=== PATIENT | male | born 1980 | race Caucasian/White ===

== ENCOUNTER 2023-10-09 19:17 | Inpatient (IN) | payer OTHER, SELFPAY ==
--- NOTE | ~2023-10-09 | XR_ITS ---
EXAMINATION: XR chest 1V CLINICAL INFORMATION: Reason for Exam weakness COMPARISON: None TECHNIQUE: XR chest 1V Tubes and lines: None Lungs and pleura: Both lungs are clear. Heart and mediastinum: The mediastinum is within normal limits.. Bones/soft tissue: Skeletal structures included are normal for patient's age. XR/XR chest 1V IMPRESSION: No radiographic evidence of acute cardiopulmonary disease.
[2023-10-09 19:58] VITALS: BP 91/53; PULSE 105; RESP 18; TEMP 37.1; O2SAT 97; BMI 41.2
--- NOTE | 2023-10-09 20:04 | ED_ITS ---
HPI - General Adult General Chief complaint: Dizziness Stated complaint: Dizziness Time Seen by Provider: 10/09/23 21:45 Source: patient Mode of arrival: ambulatory Limitations: no limitations History of Present Illness HPI narrative: 43 yo male with PMH of HTN, DM, anxiety - has been on lisinopril for over a year, takes metformin, glipizide, insulin, pioglitazone. 1 month ago he was started on klonazepam 0.5mg daily for anxiety. He notes he has been very dizzy when he stands - his vision becomes black, he loses strength in his legs, he feels like he is going to pass and then he has fallen to the ground. No trauma. This has been going on for a month. He notes decreased oral intake but denies vomiting or diarrhea. on 09/09 his Cr was 1.3 with his PCP MD complaint: syncope, near syncope, dizziness Onset (ago): month(s) (1) Radiation: non-radiation Severity: moderate Relieving factors: rest Exacerbating factors: other (standing up) Associated symptoms: loss of appetite, malaise and weakness Treatments prior to arrival: none Related Data Allergies Allergy/AdvReac Type Severity Reaction Status Date / Time semaglutide [From Ozempic] Allergy Gastrointestinal Verified 10/09/23 19:57 Upset Review of Systems 2 Review of Systems: Constitutional : No Fever, No Chills, No Fatigue, pos anorexia ENT/Mouth : No sore throat, No Rhinorrhea Eyes: No Eye Pain, No Swelling, No Redness Cardiovascular : No Chest Pain, No SOB, No Dyspnea on Exertion Respiratory : No Cough, No Sputum Gastrointestinal : No Nausea, No Vomiting, No Diarrhea, No abdominal Pain Genitourinary : No Dysuria, No Urinary Frequency, No Hematuria, Musculoskeletal : No joint pain, No Myalgias, No Joint Swelling Skin : No Skin Lesions, No rash Neuro : pos Weakness, No Numbness, pos Dizziness, no Headache, pos syncope Psych : No Anxiety/Panic, No Depression Heme/Lymph: No Bruising, No Bleeding,No Lymphadenopathy Endocrine : No Polyuria, No Polydipsia All other systems reviewed and are negative [facility] Past Medical History Attestation statement: The following information was validated with the patient. Source: old records reviewed Medical History Anxiety HTN (hypertension) Diabetes Social History Social History Alcohol intake: current Alcohol intake frequency: holidays/special occasions only Smoked in Last 30 Days: No Use of substances other than those prescribed or required for medical reasons: Yes Substance Use Type: Marijuana Substance Use Frequency: Socially Last Used Substance: Days (ago) Advance Directives: No Advance Directives Information Provided: No Physical Exam ED Vital Signs: Vital Signs - 24 hr 10/09/23 19:58 10/09/23 22:18 10/09/23 22:19 Temperature 98.7 F Pulse Rate 105 H 89 97 Respiratory Rate 18 Blood Pressure 91/53 L 79/44 L 77/38 L Pulse Oximetry 97 Oxygen Delivery Method Room Air 10/09/23 22:21 10/09/23 23:33 Temperature Pulse Rate 109 H 91 Respiratory Rate 18 Blood Pressure 66/24 L 95/55 L Pulse Oximetry 96 Oxygen Delivery Method Room Air BMI result Body Mass Index 41.2 Appearance: Alert. Oriented X3. No acute distress. Eyes: Pupils equal, round and reactive to light. ENT: Pharynx normal. Neck: Normal inspection. Neck supple. CVS: Normal heart rate and rhythm. Pulses normal. Respiratory: No respiratory distress. Breath sounds normal. Abdomen: Soft and nontender. Skin: Skin warm and dry. Normal skin color. Normal skin turgor. Extremities: No lower extremity edema. No calf ttp Neuro: Oriented X 3. No motor deficit. No sensory deficit. Course Course Course Narrative: 43-year-old male presents for evaluation of dizziness and syncope. Patient reports numerous times over the last month he has ?felt like the room was spinning, vision goes black and then I would black out. ? He states that he initially felt his symptoms were related to smoking too much weed. He is noted to be mildly hypotensive in triage. Plan for labs, EKG, orthostatics Reevaluation(s) Reevaluation #1: GROSSLY POSISTIVE ORTHOSTATICS DROPPED TO 60s systolic Reevaluation #2: hypotension due to orthostatics and not infection or severe sepsis Reevaluation #3: BP is coming up with IVF Medications Administered Discontinued Medications Generic Name Dose Route Start Last Admin Trade Name Freq PRN Reason Stop Dose Admin Sodium Chloride 1,000 mls @ 999 mls/hr 10/09/23 22:00 10/09/23 22:26 Ns IV 10/09/23 23:00 999 mls/hr .Q1H1M KEKE Administration Sodium Chloride 1,000 mls @ 999 mls/hr 10/09/23 22:00 10/09/23 22:27 Ns IV 10/09/23 23:00 999 mls/hr .Q1H1M KEKE Administration Medical Decision Making Medical Decision Making [facility] Narrative: 43 yo male with PMH of HTN, DM, HLD here with dizziness and near syncope/syncope while standing x 1 month after starting clonazepam. He denies trauma from falls. At this time will need EKG, labs, IVF x 2L, orthostatics. He has no CP/SOB, no GIB symptoms. He denies infectious symptoms. He is neurologically intact. Differential Diagnosis Differential Diagnoses: The differential diagnosis associated with the presentation includes med reactions, dehydration, orthostatics Admission/Observation Consideration of admission/observation: Escalation of care including admission/observation considered will admit given degree of symptoms Consult Healthcare Provider Management of the patient was discussed with: Hospitalist (will admit) Lab Data [facility] Lab Attestation statement: I reviewed the patient's lab results. 10/09/23 20:22 10/09/23 20:22 Labs: Lab Results 10/09/23 10/09/23 Range/Units 20:22 23:31 WBC 15.8 H (4.8-10.8) X10*3/uL RBC 5.70 (4.60-5.80) X10*6/uL Hgb 17.3 (14.0-18.0) g/dl Hct 50.7 (42.0-52.0) % MCV 88.9 (80.0-98.0) fL MCH 30.4 (27.0-33.0) pg MCHC 34.1 (31.0-36.0) g/dl RDW 12.7 (11.0-16.0) % Plt Count 287 (160-400) X10*3/uL MPV 11.5 (9.4-12.4) fL Immature Gran % (Auto) 0.4 (0.0-0.4) % Neut % (Auto) 62.4 (45-73) % Lymph % (Auto) 28.2 (20-40) % [place] % (Auto) 6.5 (2-11) % Eos % (Auto) 2.0 (0-4) % Baso % (Auto) 0.5 (0-2) % Lymph # (Auto) 4.5 (1.2-4.9) X10*3/uL [place] # (Auto) 1.0 (0.1-1.2) X10*3/uL Eos # (Auto) 0.3 (0.0-0.4) X10*3/uL Baso # (Auto) 0.1 (0.0-0.2) X10*3/uL Abs Immat Gran (auto) 0.07 H (0.00-0.03) X10*3/uL Absolute Neuts (auto) 9.9 H (2.0-8.3) x10*3/uL Absolute Nucleated RBC 0.000 (0.0-0.012) X10*3/uL Nucleated RBC % (auto) 0.0 (0.0-0.2) /100WBC Sodium 137 (135-145) mmol/L Potassium 4.3 (3.3-5.1) mmol/L Chloride 102 (96-108) mmol/L Carbon Dioxide 24 (22-29) mmol/L Anion Gap 15 (12-20) BUN 23 H (9-16) mg/dL Creatinine 1.83 H (0.5-1.4) mg/dL Estim Creat Clear Calc 75.3 Estimated GFR 40 Random Glucose 236 H (60-115) mg/dL Calcium 9.8 (8.4-10.2) mg/dL Magnesium 1.8 (1.6-2.6) mg/dL Total Bilirubin 1.9 H (0.0-1.0) mg/dL AST 23 (5-37) U/L ALT 33 (0-40) U/L Alkaline Phosphatase 90 (39-117) U/L Total Creatine Kinase 83 (38-174) U/L Troponin I High Sens 3.8 (<3.5-35.0) ng/L Total Protein 7.6 (6.5-8.0) g/dL Albumin 4.2 (3.5-5.0) g/dL Lipase 28 (8-78) U/L Urine Color Yellow Urine Appearance Clear Urine pH 5.5 (5.0-9.0) Ur Specific [place] >= 1.030 H (1.005-1.025) Urine Protein Negative (Neg-Trace) mg/dL Urine Glucose (UA) >=1000 H (Negative) mg/dL Urine Ketones Trace (Negative) mg/dL Urine Blood Negative (Negative) Urine Nitrite Negative (Negative) Ur Leukocyte Esterase Negative (Negative) Urine RBC 0-2 (0-2) /HPF Urine WBC 0-5 (0-5) /HPF Ur Squamous Epith Cells 0-2 (0-2) /HPF Urine Bacteria None Seen (None Seen) Hyaline Casts 0-2 (0-2) /LPF Urine Opiates Screen Not Detected (Not Detect) Urine Fentanyl Screen Not Detected (Not Detect) Ur Barbiturates Screen Not Detected (Not Detect) Ur Phencyclidine Scrn Not Detected (Not Detect) Ur Amphetamines Screen Not Detected (Not Detect) U Benzodiazepines Scrn Not Detected (Not Detect) Urine Cocaine Screen Not Detected (Not Detect) U Marijuana (THC) Screen POSITIVE H (Not Detect) Ethyl Alcohol < 10 mg/dL Independent Interpretation I performed an independent interpretation of an: EKG and Plain X-Ray Interpretation: Rate: 93 Rhythm: NSR [place]: normal Normal P waves. Normal YO. Normal QRS complex. ST T wave : normal no KATLIN qTC: 502 prolonged prior studies: no acute ischemia The study has been interpreted contemporaneously by me. . Radiology Impression Discussion of test interpretation with radiology: I have reviewed the radiologist's reading. External Record Review External record reviewed: Prior outpatient labs Discharge Plan Discharge Clinical Impression: DADA (acute kidney injury), Orthostatic hypotension Patient Disposition: Admitted As Inpatient
--- NOTE | 2023-10-09 20:05 | ECG_ITS ---
Test Reason : dizziness Blood Pressure : / mmHG Vent. Rate : 093 BPM Atrial Rate : 093 BPM P-R Int : 140 ms QRS Dur : 082 ms QT Int : 404 ms P-R-T Axes : 006 043 064 degrees QTc Int : 502 ms Normal sinus rhythm Prolonged QT Abnormal ECG No previous ECGs available Referred By: Andi Tello Electronically Signed By:TEX KEITA
[2023-10-09 20:26] LABS: MANUAL DIFF FLAG NO
[2023-10-09 20:31] LABS: Basophils Absolute Auto 0.1 X10*3/uL (0.0-0.2); Basophils Percent Auto 0.5 % (0-2); Eosinophils Absolute Auto 0.3 X10*3/uL (0.0-0.4); Hematocrit 50.7 % (42.0-52.0); Hemoglobin 17.3 g/dl (14.0-18.0); Imm Gran Abs Auto 0.07 X10*3/uL (0.00-0.03); Imm Gran Pct Auto 0.4 % (0.0-0.4); Lymphocytes Absolute Auto 4.5 X10*3/uL (1.2-4.9); Lymphocytes Percent Auto 28.2 % (20-40); Mean Corpuscular HGB Conc 34.1 g/dl (31.0-36.0); Mean Corpuscular Hemoglobin 30.4 pg (27.0-33.0); Mean Corpuscular Volume 88.9 fL (80.0-98.0); Mean Platelet Volume 11.5 fL (9.4-12.4); Monocytes Percent Auto 6.5 % (2-11); Neutrophils Absolute Auto 9.9 x10*3/uL (2.0-8.3); Neutrophils Percent Auto 62.4 % (45-73); Platelet Count 287 X10*3/uL (160-400); Red Cell Distribution Width 12.7 % (11.0-16.0); White Blood Count 15.8 X10*3/uL (4.8-10.8)
[2023-10-09 20:46] LABS: Alanine Aminotransferase 33 U/L (0-40); Albumin Level 4.2 g/dL (3.5-5.0); Alkaline Phosphatase 90 U/L (39-117); Anion Gap 15 (12-20); Aspartate Amino Transferase 23 U/L (5-37); Bilirubin Total 1.9 mg/dL (0.0-1.0); Blood Urea Nitrogen 23 mg/dL (9-16); Calcium 9.8 mg/dL (8.4-10.2); Carbon Dioxide 24 mmol/L (22-29); Chloride 102 mmol/L (96-108); Creatinine Clr Calc Pharmacy 75.3; Estimated Glomerular Filt Rate 40; Glucose Random 236 mg/dL (60-115); Lipase 28 U/L (8-78); Potassium 4.3 mmol/L (3.3-5.1); Sodium 137 mmol/L (135-145); Total Protein 7.6 g/dL (6.5-8.0)
[2023-10-09 20:53] LABS: Troponin-I High Sensitivity 3.8 ng/L (<3.5-35.0)
[2023-10-09 22:17] LABS: Ethanol < 10 mg/dL; Magnesium 1.8 mg/dL (1.6-2.6)
[2023-10-09 22:18] VITALS: BP 79/44; PULSE 89
[2023-10-09 22:19] VITALS: BP 77/38; PULSE 97
[2023-10-09 22:21] VITALS: BP 66/24; PULSE 109
[2023-10-09] MEDS: 0.9 % Sodium Chloride 1,000 ML 999 ML IV ×2 (22:26→22:27)
--- NOTE | 2023-10-09 22:30 | PC.NURSE ---
pt tolerate orthostatic vitals well, did c/o some dizziness when standing. advised pt to stay in bed and use urinal at bedside
[2023-10-09 23:33] VITALS: BP 95/55; PULSE 91; RESP 18; O2SAT 96
[2023-10-09 23:41] LABS: Appearance Urine Clear; Color Urine Yellow; Glucose Urine UA >=1000 mg/dL (Negative); Leukocyte Esterase Urine Negative (Negative); Nitrite Urine Negative (Negative); PH 5.5 (5.0-9.0); Specific Gravity - Urine >= 1.030 (1.005-1.025); UMIC TRIGGER UACC YES; Urine Blood Negative (Negative); Urine Ketones Trace mg/dL (Negative); Urine Protein Negative (Neg-Trace)
[2023-10-09 23:43] LABS: Bacteria Urine None Seen (None Seen); Hyaline Casts Urine 0-2 /LPF (0-2); RBC Urine 0-2 /HPF (0-2); Squamous Epithelial Cell Urine 0-2 /HPF (0-2); WBC Urine 0-5 /HPF (0-5)
[2023-10-09 23:55] LABS: Amphetamine Screen Urine Not Detected (Not Detect); Barbiturates, Urine Not Detected (Not Detect); Benzodiazepines Screen Urine Not Detected (Not Detect); Cannabinoid Screen Urine POSITIVE (Not Detect); Cocaine Screen Urine Not Detected (Not Detect); Fentanyl, urine Not Detected (Not Detect); Opiate Screen Urine Not Detected (Not Detect); Phencyclidine Screen Urine Not Detected (Not Detect)
--- NOTE | 2023-10-09 23:57 | PM.IMHP ---
History of Present Illness Date of Service: 10/09/23 Attending physician on admission: David Ramos Chief Complaint: Dizziness Patient is a 43 year old morbidly obese (41.2) white male with history of poorly controlled (per patient) type 2 diabetes mellitus and hypertension who comes to the emergency room complaining of worsening dizziness over the last few months with associated vision changes and falls with loss of consciousness. He admits to smoking marijuana and initially attributed his symptoms to Marijuana but unfortunately, he still experienced the symptoms even when he stopped using. He describes feeling dizzy with change in position from sitting to standing. He admits to poor oral intake and has unintentionally lost about 12 lbs over the last 2 weeks. He denies any associated cough, fevers, chills, chest pains, palpitations, nausea, vomiting or diarrhea. Initial blood work revealed a leucocytosis of 15.8 k/mm3 and mild renal insufficiency with a BUN of 23 mg/dl and creatinine 1.83 mg/dl. EKG showed normal sinus rhythm with prolonged QTc but with no ischemic changes. His vital signs were notable for severe orthostatic hypotension. He received 2 litres of normal saline with improvement in his symptoms but was still orthostatic and so a decision was made to admit him for further care. Review of Systems Review of Systems: Yes all other systems are reviewed and are negative [facility] Medical History (Updated 10/10/23 @ 02:59 by David Ramos MD) Depression Anxiety HTN (hypertension) Diabetes Surgical History (Updated 10/10/23 @ 02:42 by David Ramos MD) H/O adenoidectomy Social History Alcohol intake: current Alcohol intake frequency: holidays/special occasions only Patient Tobacco Use Status: Never used Tobacco Smoked in Last 30 Days: No Use of substances other than those prescribed or required for medical reasons: Yes Substance Use Type: Marijuana Substance Use Frequency: Socially Last Used Substance: Days (ago) Advance Directives: No Advance Directives Information Provided: No Nutrition Risks: No Nutritional Risk Meds Allergies Allergy/AdvReac Type Severity Reaction Status Date / Time semaglutide [From Ozempic] Allergy Gastrointestinal Verified 10/09/23 19:57 Upset Home Medications Medication Instructions Recorded Confirmed Last Taken Type aripiprazole 10 mg tablet 10 mg PO DAILY 10/10/23 10/10/23 Unknown History buspirone 30 mg tablet 30 mg PO BID 10/10/23 10/10/23 Unknown History clonazepam 0.5 mg tablet 0.5 mg PO DAILY PRN Anxiety 10/10/23 10/10/23 Unknown History empagliflozin 25 mg tablet 25 mg PO DAILY 10/10/23 10/10/23 Unknown History (Jardiance) escitalopram oxalate 20 mg tablet 20 mg PO DAILY 10/10/23 10/10/23 Unknown History escitalopram oxalate 20 mg tablet 20 mg PO DAILY 10/10/23 10/10/23 Unknown History gabapentin 300 mg capsule 300 mg PO TID 10/10/23 10/10/23 Unknown History insulin glargine 100 unit/mL (3 30 unit subcut DAILY@0730 Type 2 10/10/23 10/10/23 Unknown History mL) subcutaneous pen (Lantus Diabetes Mellitus Solostar U-100 Insulin) lisinopril 40 mg tablet 40 mg PO DAILY 10/10/23 10/10/23 Unknown History metformin 500 mg tablet,extended 2,000 mg PO DAILY 10/10/23 10/10/23 Unknown History release 24 hr pioglitazone 30 mg tablet 30 mg PO DAILY 10/10/23 10/10/23 Unknown History Physical Exam Vital Signs and Narrative: Vital Signs: Last Vital Signs Temp 98.7 F 10/09/23 19:58 Pulse 91 10/09/23 23:33 Resp 18 10/09/23 23:33 BP 95/55 L 10/09/23 23:33 Pulse Ox 96 10/09/23 23:33 O2 Del Method Room Air 10/09/23 23:33 BMI result Body Mass Index 41.2 General: Well nourished. Awake, alert and oriented x 4. No apparent distress Eyes: No pallor or jaundice. PERRLA, EOMI HENT: Moist oral mucus membranes. No oropharyngeal lesions. Neck: Supple. No cervical adenopathy. No JVD Cardiovascular: Regular rate and rhythm. Normal heart sounds. No murmurs, rubs or gallops. No JVD. No peripheral edema. Respiratory: Normal respiratory effort with no accessory muscle use. CTAB. , CTA bilaterally Gastrointestinal: Abdomen is soft, non-tender, non-distended. Normoactive bowel sounds. No hepatosplenomegaly Extremities: No edema. No calf tenderness. Good peripheral pulses Skin - Warm/Dry. No rashes. No mottling. Capillary refill is < 2 seconds Neurological - AAOx4. Intact speech & cognition. Normal gait & balance. CN II - XII grossly intact but not individually tested. No motor or sensory deficits Hematologic: No bleeding. No ecchymosis. No swollen or tender lymph nodes. Psychiatric: Cooperative. Appropriate mood and affect. Results Labs 10/09/23 20:22 10/09/23 20:22 Labs: Laboratory Results - last 24 hr 10/09/23 10/09/23 20:22 23:31 MCV 88.9 MCH 30.4 MCHC 34.1 RDW 12.7 Plt Count 287 MPV 11.5 Immature Gran % (Auto) 0.4 Neut % (Auto) 62.4 Lymph % (Auto) 28.2 [place] % (Auto) 6.5 Eos % (Auto) 2.0 Baso % (Auto) 0.5 Lymph # (Auto) 4.5 [place] # (Auto) 1.0 Eos # (Auto) 0.3 Baso # (Auto) 0.1 Abs Immat Gran (auto) 0.07 H Absolute Neuts (auto) 9.9 H Absolute Nucleated RBC 0.000 Nucleated RBC % (auto) 0.0 Anion Gap 15 Estim Creat Clear Calc 75.3 Estimated GFR 40 Random Glucose 236 H Calcium 9.8 Magnesium 1.8 Total Bilirubin 1.9 H AST 23 ALT 33 Alkaline Phosphatase 90 Total Creatine Kinase 83 Total Protein 7.6 Albumin 4.2 Lipase 28 Urine Color Yellow Urine Appearance Clear Urine pH 5.5 Ur Specific [employer] >= 1.030 H Urine Protein Negative Urine Glucose (UA) >=1000 H Urine Ketones Trace Urine Blood Negative Urine Nitrite Negative Ur Leukocyte Esterase Negative Urine RBC 0-2 Urine WBC 0-5 Ur Squamous Epith Cells 0-2 Urine Bacteria None Seen Hyaline Casts 0-2 Urine Opiates Screen Not Detected Urine Fentanyl Screen Not Detected Ur Barbiturates Screen Not Detected Ur Phencyclidine Scrn Not Detected Ur Amphetamines Screen Not Detected U Benzodiazepines Scrn Not Detected Urine Cocaine Screen Not Detected U Marijuana (THC) Screen POSITIVE H Ethyl Alcohol < 10 ECG Interpretation: NSR at 93 bpm with prolonged QT and no ischmeic changes Imaging Radiologist's Impressions: Impressions Chest X-Ray 12/08/23 22:11 IMPRESSION: No radiographic evidence of acute cardiopulmonary disease. Assessment and Plan (1) Orthostatic syncope: Status: Acute (2) Acute renal failure: Qualifiers: Acute renal failure type: unspecified Qualified Code(s): N17.9 - Acute kidney failure, unspecified Status: Acute (3) Type 2 diabetes mellitus: Qualifiers: Diabetes mellitus watermelon inspector insulin use: with senior care use Diabetes mellitus complication status: with hyperglycemia Qualified Code(s): E11.65 - Type 2 diabetes mellitus with hyperglycemia; Z79.4 - termination clerk (current) use of insulin Status: Acute (4) Anxiety and depression: Status: Acute (5) Morbid obesity with BMI of 40.0-44.9, adult: Status: Acute (6) Marijuana abuse: Status: Acute Plan 43 year old morbidly obese (41.2) white male with history of poorly controlled (per patient) type 2 diabetes mellitus and hypertension here with 1. Orthostatic syncope - reports dizziness with change in position - noted to have orthostatic hypotension - differential diagnosis to include dehydration vs autonomic dysfunction caused by T2DM - continue IV fluids 2. Acute renal failure - likely with pre-renal azotemia - BUN of 23 and creatinine of 1.83 mg/dl - rehydrate and re-evaluate in AM 3. Type 2 diabetes mellitus - with mild hyperglycemia with BS of 236 - resume Insulin Glargine, Glipizide, Jardiance and Pioglitazone - Hold Metformin due to DADA - check A1c 4. Anxiety & depression - resume Lexapro, Abilify, Buspar, gabapentin and PRN Clonazepam 5. Leucoytosis - noted with a leucocytosis of 15.8 - likely reactive since no signs of infection noted - monitor 5. Morbid obesity - BMI of 41.2 kg/m2 - encourage weight loss 6. Marijuana use - encourage complete cessation DVT: SC Lovenox CODE STATUS: Full code Admission for at least 2 midnights for management of orthostatic hypotension and acute renal failure Total time managing care of this patient today: 75 minutes. Quality Stroke Does the patient have a stroke diagnosis?: No VTE Prior VTE?: No VTE Risk Level:: Medical - moderate - high VTE Device Contraindication: N/A - Device Ordered VTE Drug Contraindication: N/A - Med Ordered
[2023-10-10] VITALS (9 sets, daily range): BP systolic 100–138; BP diastolic 58–81; PULSE 80–90; RESP 10–18; TEMP 36.6; O2SAT 94–97
--- NOTE | 2023-10-10 01:27 | PC.NURSE ---
hospitalist at bedside for admit
[2023-10-10] MEDS: Enoxaparin Sodium 40 MG/0.4 ML SYRINGE SUBCUT (01:38)
[2023-10-10] MEDS: Lactated Ringers 1,000 ML 999 ML IV ×2 (02:10→02:59)
--- NOTE | 2023-10-10 05:22 | PC.NURSE ---
pt ambulated to the bathroom, last BP 138/81. pt denied dizziness at this time. pt back in bed on monitor
--- NOTE | 2023-10-10 06:05 | PC.NURSE ---
pt awake most of the night, denies any pain or discomfort. given water and crackers. 4L of fluids were infused, BP stable
[2023-10-10 06:39] LABS: Estimated Average Glucose 232 mg/dL; Hemoglobin A1c % 9.7 % (<6.0)
[2023-10-10 06:45] LABS: Cholesterol 173 mg/dL (<200); HDL Cholesterol 31 mg/dL (>40); LDL Cholesterol Calculated 100 mg/dL (<100); Triglycerides 210 mg/dL (<150)
[2023-10-10 07:13] LABS: D Dimer High Sensitivity < 150 NG/ML
--- NOTE | 2023-10-10 07:45 | PHA.MEDREC ---
Pharmacy Consult ? Medication Reconciliation Pharmacy HAS REVIEWED THE MED REC COMPLETED BY PROVIDER KEREN
[2023-10-10 08:48] LABS: Glucose, Whole Blood 165 mg/dL (60-115)
[2023-10-10] MEDS: busPIRone HCl 10 MG TABLET 30 MG PO (08:58)
[2023-10-10] MEDS: Gabapentin 300 MG CAPSULE PO (08:58)
[2023-10-10] MEDS: Insulin Glargine,Hum.rec.anlog 100 UNIT/ML 10 ML VIAL 30 UNIT SUBCUT (08:58)
[2023-10-10] MEDS: Escitalopram Oxalate 20 MG TABLET PO (08:59)
[2023-10-10] MEDS: Docusate Sodium 100 MG CAPSULE PO (08:59)
[2023-10-10] MEDS: Insulin Lispro 100 UNIT/ML 3 ML VIAL SUBCUT (08:59)
[2023-10-10] MEDS: Pioglitazone HCL 30 MG TABLET PO (09:08)
[2023-10-10] MEDS: Empagliflozin 25 MG TABLET PO (09:08)
[2023-10-10] MEDS: ARIPiprazole 10 MG TABLET PO (09:08)
--- NOTE | 2023-10-10 09:14 | PC.NURSE ---
ASSUMED CARE OF THIS PT. CURRENTLY IN NAD, SKIN PWD. DROP IN BP FROM SITTING TO STANDING, ASYMPTOMATIC. MEDICATED PER EMR. C/O SLIGHT BACK PAIN, REPOSITIONING SELF FOR COMFORT.
[2023-10-10 13:38] LABS: Glucose, Whole Blood 164 mg/dL (60-115)
--- NOTE | 2023-10-10 14:38 | PM.DS ---
DS: Providers Provider Date of Service: 10/10/23 Date of admission: 10/09/23 23:58 Primary care physician: Unknown Physician DS: Diagnosis Discharge Diagnosis (1) Orthostatic syncope: Status: Acute (2) Acute renal failure: Status: Acute (3) Type 2 diabetes mellitus: Status: Acute (4) Anxiety and depression: Status: Acute (5) Morbid obesity with BMI of 40.0-44.9, adult: Status: Acute (6) Marijuana abuse: Status: Acute DS: Summary Hospital Course Hospital Course: Patient is a 43 year old morbidly obese (41.2) white male with history of poorly controlled (per patient) type 2 diabetes mellitus and hypertension who comes to the emergency room complaining of worsening dizziness over the last few months with associated vision changes and falls with loss of consciousness. He admits to smoking marijuana and initially attributed his symptoms to Marijuana but unfortunately, he still experienced the symptoms even when he stopped using. He describes feeling dizzy with change in position from sitting to standing. He admits to poor oral intake and has unintentionally lost about 12 lbs over the last 2 weeks. He denies any associated cough, fevers, chills, chest pains, palpitations, nausea, vomiting or diarrhea. Initial blood work revealed a leucocytosis of 15.8 k/mm3 and mild renal insufficiency with a BUN of 23 mg/dl and creatinine 1.83 mg/dl. EKG showed normal sinus rhythm with prolonged QTc but with no ischemic changes. His vital signs were notable for severe orthostatic hypotension. He received 2 litres of normal saline with improvement in his symptoms but was still orthostatic and so a decision was made to admit him for further care. 43-year-old man treated for orthostatic hypotension dizziness and acute renal failure. Patient reported that he had been drinking a lot or caffeine recently and not enough water or other liquids. He denied any alcohol use. Did report that he smokes marijuana. No other new medications. No obvious signs of infection, UA and chest x-ray negative. Patient with no fever. Likely reactive leukocytosis. Patient was treated with at least 2-3 L of IV fluids with improvement in blood pressure. Patient has been able to ambulate without any dizziness. His renal failure did return to normal after rehydration. Patient is to stop lisinopril as his blood pressures are on the lower side and DADA. The lisinopril may also be playing role as patient did report weight loss of at least 12 lb therefore may be he no longer requires antihypertensive medications he should follow-up with his primary care provider to make this determination. Leukocytosis. Reactive, no sign of infection Mental health. Continue medications Diabetes mellitus type 2. Continue home medications Morbid obesity. Discussed importance of weight management as this may be contributing to worsening of other comorbidities Marijuana use. Encouraged cessation Time Attestation Discharge coordination time: Greater than 30 minutes Quality: Safe Use of Opioids Does Pt have an Active Cancer Diagnosis on the Problem List?: No Quality: Stroke Does the patient have a stroke diagnosis?: No Physical Exam Vital Signs: Vital Signs: Last Vital Signs Temp 97.8 F 10/10/23 09:12 Pulse 90 10/10/23 09:12 Resp 16 10/10/23 09:12 BP 104/68 10/10/23 09:12 Pulse Ox 97 10/10/23 09:12 O2 Del Method Room Air 10/10/23 09:12 BMI result Body Mass Index 41.2 Appearing in no acute distress head is normocephalic atraumatic eyes pupils are PERRLA sclera is anicteric mouth throat mucous membranes are intact and moist neck is supple no lymphadenopathy, no JVD noted lung sounds are clear to auscultation heart regular rate rhythm, clear S1, S2 positive bowel sounds, abdomen is soft, nontender neuro patient is alert x3, no focal deficits DS: Data Data Completed and Pending Labs on day of discharge: Laboratory Results - last 24 hr 10/09/23 10/09/23 10/10/23 20:22 23:31 05:57 WBC 15.8 H RBC 5.70 Hgb 17.3 Hct 50.7 MCV 88.9 MCH 30.4 MCHC 34.1 RDW 12.7 Plt Count 287 MPV 11.5 Immature Gran % (Auto) 0.4 Neut % (Auto) 62.4 Lymph % (Auto) 28.2 Warren % (Auto) 6.5 Eos % (Auto) 2.0 Baso % (Auto) 0.5 Lymph # (Auto) 4.5 Warren # (Auto) 1.0 Eos # (Auto) 0.3 Baso # (Auto) 0.1 Abs Immat Gran (auto) 0.07 H Absolute Neuts (auto) 9.9 H Absolute Nucleated RBC 0.000 Nucleated RBC % (auto) 0.0 Hold Purple Top SEE NOTE PT 12.0 INR 1.0 D-Dimer High Sensitivty < 150 Sodium 137 Potassium 4.3 Chloride 102 Carbon Dioxide 24 Anion Gap 15 BUN 23 H Creatinine 1.83 H Estim Creat Clear Calc 75.3 Estimated GFR 40 POC Glucose Random Glucose 236 H Estimat Average Glucose 232 Hemoglobin A1c % 9.7 H Calcium 9.8 Magnesium 1.8 Total Bilirubin 1.9 H AST 23 ALT 33 Alkaline Phosphatase 90 Total Creatine Kinase 83 Troponin I High Sens 3.8 Total Protein 7.6 Albumin 4.2 Triglycerides 210 H Cholesterol 173 LDL Cholesterol, Calc 100 H HDL Cholesterol 31 L Lipase 28 Urine Color Yellow Urine Appearance Clear Urine pH 5.5 Ur Specific [place] >= 1.030 H Urine Protein Negative Urine Glucose (UA) >=1000 H Urine Ketones Trace Urine Blood Negative Urine Nitrite Negative Ur Leukocyte Esterase Negative Urine RBC 0-2 Urine WBC 0-5 Ur Squamous Epith Cells 0-2 Urine Bacteria None Seen Hyaline Casts 0-2 Urine Opiates Screen Not Detected Urine Fentanyl Screen Not Detected Ur Barbiturates Screen Not Detected Ur Phencyclidine Scrn Not Detected Ur Amphetamines Screen Not Detected U Benzodiazepines Scrn Not Detected Urine Cocaine Screen Not Detected U Marijuana (THC) Screen POSITIVE H Ethyl Alcohol < 10 10/10/23 10/10/23 08:43 13:33 WBC RBC Hgb Hct MCV MCH MCHC RDW Plt Count MPV Immature Gran % (Auto) Neut % (Auto) Lymph % (Auto) Warren % (Auto) Eos % (Auto) Baso % (Auto) Lymph # (Auto) Warren # (Auto) Eos # (Auto) Baso # (Auto) Abs Immat Gran (auto) Absolute Neuts (auto) Absolute Nucleated RBC Nucleated RBC % (auto) Hold Purple Top PT INR D-Dimer High Sensitivty Sodium Potassium Chloride Carbon Dioxide Anion Gap BUN Creatinine Estim Creat Clear Calc Estimated GFR POC Glucose 165 H 164 H Random Glucose Estimat Average Glucose Hemoglobin A1c % Calcium Magnesium Total Bilirubin AST ALT Alkaline Phosphatase Total Creatine Kinase Troponin I High Sens Total Protein Albumin Triglycerides Cholesterol LDL Cholesterol, Calc HDL Cholesterol Lipase Urine Color Urine Appearance Urine pH Ur Specific [place] Urine Protein Urine Glucose (UA) Urine Ketones Urine Blood Urine Nitrite Ur Leukocyte Esterase Urine RBC Urine WBC Ur Squamous Epith Cells Urine Bacteria Hyaline Casts Urine Opiates Screen Urine Fentanyl Screen Ur Barbiturates Screen Ur Phencyclidine Scrn Ur Amphetamines Screen U Benzodiazepines Scrn Urine Cocaine Screen U Marijuana (THC) Screen Ethyl Alcohol Discharge Plan Discharge Anticipated Discharge Date/Time: 10/10/23 14:34 Patient Disposition: Home, Self-Care Discharge Diagnosis: DADA Orthostatic hypotension Discharge Medications: Continued aripiprazole 10 mg tablet 10 mg PO DAILY clonazepam 0.5 mg tablet 0.5 mg PO DAILY PRN (Reason: Anxiety) escitalopram oxalate 20 mg tablet 20 mg PO DAILY pioglitazone 30 mg tablet 30 mg PO DAILY metformin 500 mg tablet extended release 24 hr 2,000 mg PO DAILY Jardiance 25 mg tablet 25 mg PO DAILY gabapentin 300 mg capsule 300 mg PO TID buspirone 30 mg tablet 30 mg PO BID insulin glargine [Lantus Solostar U-100 Insulin] 100 unit/mL (3 mL) insulin pen 30 unit subcut DAILY@0730 Discontinued lisinopril 40 mg tablet 40 mg PO DAILY Discharge Orders: Discharge Order (Routine); Ordered 10/10/23 Ordered By: Clarisa Walker Diet: Advance to usual diet Activity on Discharge: As tolerated Stand Alone Forms: Patient Portal Discharge page Care Plan Goals: Stay hydrated, avoid too much caffeine and alcohol Health Concerns: DADA Orthostatic hypotension Plan of Treatment: Take all medications as prescribed Your lisinopril was stopped due to low blood pressure, follow-up primary care provider to decide whether this medication needs to be restarted Assessment: See discharge summary
[2023-10-10 15:05] LABS: Anion Gap 11 (12-20); Blood Urea Nitrogen 17 mg/dL (9-16); Calcium 9.2 mg/dL (8.4-10.2); Carbon Dioxide 28 mmol/L (22-29); Chloride 105 mmol/L (96-108); Creatinine Clr Calc Pharmacy 109.4; Estimated Glomerular Filt Rate > 60; Glucose Random 170 mg/dL (60-115); Potassium 4.4 mmol/L (3.3-5.1); Sodium 140 mmol/L (135-145)
--- NOTE | 2023-10-10 15:13 | MHC.CM.PN ---
Pt lives alone, self-care. Returning home is the goal, pts mother will transport him home. Has HCP, copy requested. PCP: Dr. Jesse Bo
--- NOTE | 2023-10-10 16:21 | MHC.CM.PN ---
Pt is medically cleared for D/C home self-care, pts mother to transport him home.
== END 2023-10-10 16:00 | disposition home or self-care (01) | DRG 312 ==
LOC: HO.ED 22:34 → HO.EDOVER 10-10 00:14
PROVIDERS: Physician Assistant; Absent Provider Nurse Practitioner Acute Care; Admitting Provider Internal Medicine; Emergency Provider Emergency Medicine; PCP Family Medicine; Visit Provider Nurse Practitioner Acute Care
DX: I95.1 Orthostatic hypotension (principal); Z68.41 Body mass index [BMI] 40.0-44.9, adult; N17.9 Acute kidney failure, unspecified; F41.9 Anxiety disorder, unspecified; F32.A Depression, unspecified; E66.01 Morbid (severe) obesity due to excess calories; E11.65 Type 2 diabetes mellitus with hyperglycemia; Z79.4 Long term (current) use of insulin; Z79.84 Long term (current) use of oral hypoglycemic drugs; Z79.899 Other long term (current) drug therapy
CPT/HCPCS: 36415; 71045; 80048; 80053; 80061; 80307; 81001; 82550; 82947; 83036; 83690; 83735; 84484; 85025; 85379; 85610; 93005; 99285; J1650; J7120

== ENCOUNTER → 2023-10-09 20:05 | Outpatient (BNV) | payer OTHER, SELFPAY | PROVIDERS: Admitting Provider Internal Medicine; Emergency Provider Emergency Medicine; Visit Provider Internal Medicine | DX: I45.81 Long QT syndrome (principal) | CPT/HCPCS: 93010 ==

== ENCOUNTER → 2023-10-09 23:58 | Outpatient (BNV) | payer OTHER, SELFPAY | PROVIDERS: Admitting Provider Internal Medicine; Emergency Provider Emergency Medicine; Visit Provider Internal Medicine | DX: I95.1 Orthostatic hypotension (principal); N17.9 Acute kidney failure, unspecified; E11.65 Type 2 diabetes mellitus with hyperglycemia; Z79.4 Long term (current) use of insulin; F41.9 Anxiety disorder, unspecified; F32.A Depression, unspecified; E66.01 Morbid (severe) obesity due to excess calories; Z68.41 Body mass index [BMI] 40.0-44.9, adult; F12.10 Cannabis abuse, uncomplicated | CPT/HCPCS: 99223; 99239 ==

== ENCOUNTER 2025-01-03 16:07 | Emergency (ER) | payer OTHER, BC, SELFPAY ==
--- NOTE | ~2025-01-03 | XR_ITS ---
CLINICAL HISTORY: CP CHEST X-RAY FRONTAL AND LATERAL VIEWS COMPARISON: 10/09/2023. FINDINGS: Frontal and lateral views of the chest were performed. Cardiac size is within normal limits. There is no acute infiltrate or consolidation. There is minimal blunting of the left costophrenic angle on the lateral view, representing either pleural thickening or tiny pleural effusion. No pneumothorax. IMPRESSION: 1. Minimal blunting of the left costophrenic angle on the lateral view, representing either pleural thickening or tiny pleural effusion. 2. No acute infiltrate or consolidation. This document has been electronically signed by: Jamel Chang M.D. on 01/03/2025 21:10:04
--- NOTE | 2025-01-03 16:09 | ECG_ITS ---
Test Reason : chest pain Blood Pressure : */* mmHG Vent. Rate : 95 BPM Atrial Rate : 95 BPM P-R Int : 144 ms QRS Dur : 82 ms QT Int : 390 ms P-R-T Axes : 31 67 69 degrees QTcB Int : 490 ms Normal sinus rhythm Prolonged QT Abnormal ECG When compared with ECG of 09-Oct-2023 20:16, No significant change was found Referred By: Generic ED Physician Electronically Signed By: DENICE AC MD
[2025-01-03 16:27] VITALS: BP 139/91; PULSE 95; RESP 16; TEMP 36.6; O2SAT 95; BMI 39.3
--- NOTE | 2025-01-03 16:28 | ED.GENADULT ---
HPI - General Adult General Chief complaint: General Medical Stated complaint: ABN EKG sent by Urgent Care Time Seen by Provider: 01/04/25 03:58 Source: patient Mode of arrival: ambulatory Limitations: no limitations History of Present Illness ED Provider: Dr. Zaynab Farris HPI narrative: Patient comes to the emergency room complaining of lightheadedness with standing. Patient states that this is something chronic for him. Patient also complaining of high blood sugar. Patient states that last week he had chest tightness. At this time, patient feels fairly well. Related Data Home Medications ?Medication ?Instructions ?Recorded ?Confirmed aripiprazole 10 mg tablet 10 mg PO DAILY 10/10/23 10/10/23 buspirone 30 mg tablet 30 mg PO BID 10/10/23 10/10/23 clonazepam 0.5 mg tablet 0.5 mg PO DAILY PRN Anxiety 10/10/23 10/10/23 empagliflozin 25 mg tablet 25 mg PO DAILY 10/10/23 10/10/23 (Jardiance) escitalopram oxalate 20 mg tablet 20 mg PO DAILY 10/10/23 10/10/23 gabapentin 300 mg capsule 300 mg PO TID 10/10/23 10/10/23 insulin glargine 100 unit/mL (3 30 unit subcut DAILY@0730 Type 2 10/10/23 10/10/23 mL) subcutaneous pen (Lantus Diabetes Mellitus Solostar U-100 Insulin) metformin 500 mg tablet,extended 2,000 mg PO DAILY 10/10/23 10/10/23 release 24 hr pioglitazone 30 mg tablet 30 mg PO DAILY 10/10/23 10/10/23 Previous Rx's ?Medication ?Instructions ?Recorded insulin glargine 100 unit/mL (3 10 unit (0.1 mL) subcut QPM #15 mL 01/04/25 mL) subcutaneous pen (Lantus Solostar U-100 Insulin) Allergies Allergy/AdvReac Type Severity Reaction Status Date / Time dulaglutide [From Trulicity] Allergy Abdominal Verified 01/03/25 16:30 Pain semaglutide [From Ozempic] Allergy Gastrointestinal Verified 01/03/25 16:30 Upset Review of Systems Review of Systems: Constitutional : No Weight loss, No Fever, No Chills, No Night Sweats, No Fatigue, No Malaise ENT/Mouth : No Hearing loss, No Ear Pain, No Nasal Congestion, No Sinus Pain, No Hoarseness, No sore throat, No Rhinorrhea, No Swallowing Difficulty Eyes: No Eye Pain, No Swelling, No Redness, No Foreign Body, No Discharge, No Vision Changes Cardiovascular : No Chest Pain, No SOB, No Dyspnea on Exertion, No Orthopnea, No Edema, No Palpitations Respiratory : No Cough, No Sputum, No Wheezing, No Smoke Exposure, No Dyspnea Gastrointestinal : No Nausea, No Vomiting, No Diarrhea, No Constipation, No abdominal Pain, No Hematochezia, No Melena Genitourinary : no irregular bleeding, No Dysuria, No Urinary Frequency, No Hematuria, No Urinary Incontinence, No Urgency, No Flank Pain, No Urinary Flow Changes, No Hesitancy Musculoskeletal : No joint pain, No Myalgias, No Joint Swelling Skin : No Skin Lesions, No rash Neuro : No Weakness, No Numbness, No Paresthesias, No Loss of Consciousness, no headache, complaining of intermittent dizziness, not that this time. Psych : No Anxiety/Panic, No Depression, No SI/HI/AH/VH, No Social Issues, Heme/Lymph: No Bruising, No Bleeding,No Lymphadenopathy Endocrine : No Polyuria, No Polydipsia, No Temperature Intolerance, complaining of high blood glucose [facility] Past Medical History Medical History Anxiety and depression Type 2 diabetes mellitus Morbid obesity with BMI of 40.0-44.9, adult Depression Anxiety HTN (hypertension) Diabetes Surgical History (Updated 10/10/23 @ 02:42 by David Ramos MD) H/O adenoidectomy Social History Social History Alcohol intake: current Alcohol intake frequency: holidays/special occasions only Patient Tobacco Use Status: Never used Tobacco Use of substances other than those prescribed or required for medical reasons: No Substance Use Type: Marijuana Advance Directives: No Advance Directives Information Provided: Yes service: No Physical Exam ED Vital Signs: Vital Signs - 24 hr 01/03/25 16:27 01/04/25 00:04 01/04/25 04:20 Temperature 97.8 F 98.6 F Pulse Rate 95 96 89 Respiratory Rate 16 16 Blood Pressure 139/91 H 123/74 135/85 Pulse Oximetry 95 96 Oxygen Delivery Method Room Air Room Air 01/04/25 04:20 01/04/25 04:20 01/04/25 06:59 Temperature 97.7 F Pulse Rate 89 94 93 Respiratory Rate 14 Blood Pressure 137/74 128/72 173/91 H Pulse Oximetry 96 Oxygen Delivery Method Room Air BMI result Body Mass Index 39.3 Course Course Course Narrative: This is an RME: Additional HPI, ROS, PE not included below will be deferred to primary provider. RME assessment and note performed by: Elisa Brito PA-C This is a [id number], with a hx of DM, depression, anxiety, who presents to the ER with concerns for dizziness, and chest tightness x 1 week. went to an urgent care, and was told to report to the emergency room due to his symptoms. patient reports that he is supposed to be on insulin for his diabetes however states that he was unable to afford this. Plan: labs, EKG, chest x-ray, further ER evaluation needed Medications Administered Discontinued Medications Generic Name Dose Route Start Last Admin Trade Name Jesus PRN Reason Stop Dose Admin Sodium Chloride 1,000 mls @ 999 mls/hr 01/04/25 04:18 01/04/25 05:25 Ns IVCONT 01/04/25 05:18 Infused .Q1H1M ONE Infusion Insulin Human Regular 5 unit 01/04/25 04:18 01/04/25 04:30 Insulin Regular, Human 100 Unit/Ml 10 Ml Vial IVPUSH 01/04/25 04:19 5 unit ONCE ONE Administration Medical Decision Making Medical Decision Making [facility] Narrative: My interpretation of labs: No significant abnormality patient's hematology, chemistry shows a glucose of 394. Patient received IV fluids, 5 units of insulin, patient's point of care now to 69 Orthostatic vitals negative, negative troponin x2 My interpretation of EKG: Normal sinus rhythm, heart rate 90, no ST segment depression or elevation, no depression, QTC chronically elevated between [id number] and 500s Patient ready for discharge Differential Diagnosis Differential Diagnoses: The differential diagnosis associated with the presentation includes Admission/Observation Consideration of admission/observation: Escalation of care including admission/observation considered Lab Data [facility] Lab Attestation statement: I reviewed the patient's lab results. 01/03/25 17:38 01/03/25 17:38 Labs: Lab Results 01/03/25 01/03/25 01/03/25 Range/Units 17:38 18:23 18:26 WBC 11.9 H (4.8-10.8) X10*3/uL RBC 5.07 (4.60-5.80) X10*6/uL Hgb 15.1 (14.0-18.0) g/dl Hct 43.2 (42.0-52.0) % MCV 85.2 (80.0-98.0) fL MCH 29.8 (27.0-33.0) pg MCHC 35.0 (31.0-36.0) g/dl RDW 13.2 (11.0-16.0) % Plt Count 232 (160-400) X10*3/uL MPV 11.4 (9.4-12.4) fL Immature Gran % (Auto) 0.4 (0.0-0.4) % Neut % (Auto) 68.5 (45-73) % Lymph % (Auto) 22.7 (20-40) % [place] % (Auto) 6.5 (2-11) % Eos % (Auto) 1.5 (0-4) % Baso % (Auto) 0.4 (0-2) % Lymph # (Auto) 2.7 (1.2-4.9) X10*3/uL [place] # (Auto) 0.8 (0.1-1.2) X10*3/uL Eos # (Auto) 0.2 (0.0-0.4) X10*3/uL Baso # (Auto) 0.1 (0.0-0.2) X10*3/uL Abs Immat Gran (auto) 0.05 H (0.00-0.03) X10*3/uL Absolute Neuts (auto) 8.2 (2.0-8.3) x10*3/uL Absolute Nucleated RBC 0.000 (0.0-0.012) X10*3/uL Nucleated RBC % (auto) 0.0 (0.0-0.2) /100WBC VBG pH 7.42 (7.32-7.43) VBG pCO2 35 mmHg VBG pO2 53 mmHg VBG HCO3 23 (22-26) mmol/L VBG O2 Saturation 85.0 % VBG Base Excess -0.4 mmol/L Sodium 136 (135-145) mmol/L Potassium 4.0 (3.3-5.1) mmol/L Chloride 100 (96-108) mmol/L Carbon Dioxide 24 (22-29) mmol/L Anion Gap 16 (12-20) BUN 17 H (9-16) mg/dL Creatinine 1.26 (0.5-1.4) mg/dL Estim Creat Clear Calc 105.7 Estimated GFR > 60 POC Glucose (60-115) mg/dL Random Glucose 437 H* (60-115) mg/dL Calcium 9.0 (8.4-10.2) mg/dL Magnesium 1.5 L (1.6-2.6) mg/dL Total Bilirubin 2.6 H (0.0-1.0) mg/dL Direct Bilirubin 0.5 (0.0-0.5) mg/dL AST 103 H (5-37) U/L ALT 82 H (0-40) U/L Alkaline Phosphatase 103 (39-117) U/L Troponin I High Sens 11.0 D (<3.5-35.0) ng/L Total Protein 7.4 (6.5-8.0) g/dL Albumin 3.9 (3.5-5.0) g/dL Beta-Hydroxybutyrate 0.12 (0.02-0.27) mmol/L Ethyl Alcohol < 10 mg/dL Influenza Type A (PCR) NEGATIVE (Negative) Influenza Type B (PCR) NEGATIVE (Negative) RSV RNA Qual (PCR) NEGATIVE (Negative) SARS-CoV-2 RNA (RT-PCR) NEGATIVE (Negative) 01/03/25 01/04/25 01/04/25 Range/Units 21:06 00:07 04:15 WBC (4.8-10.8) X10*3/uL RBC (4.60-5.80) X10*6/uL Hgb (14.0-18.0) g/dl Hct (42.0-52.0) % MCV (80.0-98.0) fL MCH (27.0-33.0) pg MCHC (31.0-36.0) g/dl RDW (11.0-16.0) % Plt Count (160-400) X10*3/uL MPV (9.4-12.4) fL Immature Gran % (Auto) (0.0-0.4) % Neut % (Auto) (45-73) % Lymph % (Auto) (20-40) % [place] % (Auto) (2-11) % Eos % (Auto) (0-4) % Baso % (Auto) (0-2) % Lymph # (Auto) (1.2-4.9) X10*3/uL [place] # (Auto) (0.1-1.2) X10*3/uL Eos # (Auto) (0.0-0.4) X10*3/uL Baso # (Auto) (0.0-0.2) X10*3/uL Abs Immat Gran (auto) (0.00-0.03) X10*3/uL Absolute Neuts (auto) (2.0-8.3) x10*3/uL Absolute Nucleated RBC (0.0-0.012) X10*3/uL Nucleated RBC % (auto) (0.0-0.2) /100WBC VBG pH (7.32-7.43) VBG pCO2 mmHg VBG pO2 mmHg VBG HCO3 (22-26) mmol/L VBG O2 Saturation % VBG Base Excess mmol/L Sodium (135-145) mmol/L Potassium (3.3-5.1) mmol/L Chloride (96-108) mmol/L Carbon Dioxide (22-29) mmol/L Anion Gap (12-20) BUN (9-16) mg/dL Creatinine (0.5-1.4) mg/dL Estim Creat Clear Calc Estimated GFR POC Glucose 394 H* 312 H (60-115) mg/dL Random Glucose (60-115) mg/dL Calcium (8.4-10.2) mg/dL Magnesium (1.6-2.6) mg/dL Total Bilirubin (0.0-1.0) mg/dL Direct Bilirubin (0.0-0.5) mg/dL AST (5-37) U/L ALT (0-40) U/L Alkaline Phosphatase (39-117) U/L Troponin I High Sens 11.3 (<3.5-35.0) ng/L Total Protein (6.5-8.0) g/dL Albumin (3.5-5.0) g/dL Beta-Hydroxybutyrate (0.02-0.27) mmol/L Ethyl Alcohol mg/dL Influenza Type A (PCR) (Negative) Influenza Type B (PCR) (Negative) RSV RNA Qual (PCR) (Negative) SARS-CoV-2 RNA (RT-PCR) (Negative) 01/04/25 Range/Units 05:26 WBC (4.8-10.8) X10*3/uL RBC (4.60-5.80) X10*6/uL Hgb (14.0-18.0) g/dl Hct (42.0-52.0) % MCV (80.0-98.0) fL MCH (27.0-33.0) pg MCHC (31.0-36.0) g/dl RDW (11.0-16.0) % Plt Count (160-400) X10*3/uL MPV (9.4-12.4) fL Immature Gran % (Auto) (0.0-0.4) % Neut % (Auto) (45-73) % Lymph % (Auto) (20-40) % [place] % (Auto) (2-11) % Eos % (Auto) (0-4) % Baso % (Auto) (0-2) % Lymph # (Auto) (1.2-4.9) X10*3/uL [place] # (Auto) (0.1-1.2) X10*3/uL Eos # (Auto) (0.0-0.4) X10*3/uL Baso # (Auto) (0.0-0.2) X10*3/uL Abs Immat Gran (auto) (0.00-0.03) X10*3/uL Absolute Neuts (auto) (2.0-8.3) x10*3/uL Absolute Nucleated RBC (0.0-0.012) X10*3/uL Nucleated RBC % (auto) (0.0-0.2) /100WBC VBG pH (7.32-7.43) VBG pCO2 mmHg VBG pO2 mmHg VBG HCO3 (22-26) mmol/L VBG O2 Saturation % VBG Base Excess mmol/L Sodium (135-145) mmol/L Potassium (3.3-5.1) mmol/L Chloride (96-108) mmol/L Carbon Dioxide (22-29) mmol/L Anion Gap (12-20) BUN (9-16) mg/dL Creatinine (0.5-1.4) mg/dL Estim Creat Clear Calc Estimated GFR POC Glucose 269 H (60-115) mg/dL Random Glucose (60-115) mg/dL Calcium (8.4-10.2) mg/dL Magnesium (1.6-2.6) mg/dL Total Bilirubin (0.0-1.0) mg/dL Direct Bilirubin (0.0-0.5) mg/dL AST (5-37) U/L ALT (0-40) U/L Alkaline Phosphatase (39-117) U/L Troponin I High Sens (<3.5-35.0) ng/L Total Protein (6.5-8.0) g/dL Albumin (3.5-5.0) g/dL Beta-Hydroxybutyrate (0.02-0.27) mmol/L Ethyl Alcohol mg/dL Influenza Type A (PCR) (Negative) Influenza Type B (PCR) (Negative) RSV RNA Qual (PCR) (Negative) SARS-CoV-2 RNA (RT-PCR) (Negative) Discharge Plan Discharge Clinical Impression: Acute hyperglycemia, Dizziness Patient Disposition: Home, Self-Care Instructions: Lightheadedness (ED), Diabetic Hyperglycemia (ED) Additional Instructions: Please follow-up with your primary care physician tomorrow. If you have any worsening or new symptoms, please return to the emergency room or call 911. Please use your good Rx nap on your phone to get this count very medications. Prescriptions: New insulin glargine [Lantus Solostar U-100 Insulin] 100 unit/mL (3 mL) insulin pen 10 unit subcut QPM Qty: 15 1RF No Action aripiprazole 10 mg tablet 10 mg PO DAILY clonazepam 0.5 mg tablet 0.5 mg PO DAILY PRN (Reason: Anxiety) escitalopram oxalate 20 mg tablet 20 mg PO DAILY pioglitazone 30 mg tablet 30 mg PO DAILY metformin 500 mg tablet extended release 24 hr 2,000 mg PO DAILY Jardiance 25 mg tablet 25 mg PO DAILY gabapentin 300 mg capsule 300 mg PO TID buspirone 30 mg tablet 30 mg PO BID insulin glargine [Lantus Solostar U-100 Insulin] 100 unit/mL (3 mL) insulin pen 30 unit subcut DAILY@0730 Print Language: Syrian
[2025-01-03 17:43] LABS: MANUAL DIFF FLAG NO
[2025-01-03 17:52] LABS: Basophils Absolute Auto 0.1 X10*3/uL (0.0-0.2); Basophils Percent Auto 0.4 % (0-2); Eosinophils Absolute Auto 0.2 X10*3/uL (0.0-0.4); Eosinophils Percent Auto 1.5 % (0-4); Hematocrit 43.2 % (42.0-52.0); Hemoglobin 15.1 g/dl (14.0-18.0); Imm Gran Abs Auto 0.05 X10*3/uL (0.00-0.03); Imm Gran Pct Auto 0.4 % (0.0-0.4); Lymphocytes Absolute Auto 2.7 X10*3/uL (1.2-4.9); Lymphocytes Percent Auto 22.7 % (20-40); Mean Corpuscular Hemoglobin 29.8 pg (27.0-33.0); Mean Corpuscular Volume 85.2 fL (80.0-98.0); Mean Platelet Volume 11.4 fL (9.4-12.4); Monocytes Absolute Auto 0.8 X10*3/uL (0.1-1.2); Monocytes Percent Auto 6.5 % (2-11); Neutrophils Absolute Auto 8.2 x10*3/uL (2.0-8.3); Neutrophils Percent Auto 68.5 % (45-73); Platelet Count 232 X10*3/uL (160-400); Red Blood Count 5.07 X10*6/uL (4.60-5.80); Red Cell Distribution Width 13.2 % (11.0-16.0); White Blood Count 11.9 X10*3/uL (4.8-10.8)
[2025-01-03 18:06] LABS: Alanine Aminotransferase 82 U/L (0-40); Albumin Level 3.9 g/dL (3.5-5.0); Alkaline Phosphatase 103 U/L (39-117); Anion Gap 16 (12-20); Aspartate Amino Transferase 103 U/L (5-37); Bilirubin Direct 0.5 mg/dL (0.0-0.5); Bilirubin Total 2.6 mg/dL (0.0-1.0); Blood Urea Nitrogen 17 mg/dL (9-16); Carbon Dioxide 24 mmol/L (22-29); Chloride 100 mmol/L (96-108); Creatinine Clr Calc Pharmacy 105.7; Estimated Glomerular Filt Rate > 60; Glucose Random 437 mg/dL (60-115); Magnesium 1.5 mg/dL (1.6-2.6); Sodium 136 mmol/L (135-145); Total Protein 7.4 g/dL (6.5-8.0)
[2025-01-03 18:25] LABS: Influenza A PCR NEGATIVE (Negative); Influenza B PCR NEGATIVE (Negative); Resp Syncy Virus RNA Qual PCR NEGATIVE (Negative); SARS COV2 PCR INHOUSE NEGATIVE (Negative)
[2025-01-03 18:28] LABS: Venous Blood Gas Refer to POC result
[2025-01-03 18:30] LABS: VBG Base Excess -0.4 mmol/L; VBG HCO3 23 mmol/L (22-26); VBG pCO2 35 mmHg; VBG pH 7.42 (7.32-7.43); VBG pO2 53 mmHg
[2025-01-03 18:39] LABS: Beta-Hydroxybutyrate 0.12 mmol/L (0.02-0.27)
[2025-01-03 18:44] LABS: Ethanol < 10 mg/dL
--- NOTE | 2025-01-03 20:42 | ECG_ITS ---
Test Reason : repeat increase cp Blood Pressure : */* mmHG Vent. Rate : 90 BPM Atrial Rate : 90 BPM P-R Int : 132 ms QRS Dur : 84 ms QT Int : 404 ms P-R-T Axes : 6 61 66 degrees QTcB Int : 494 ms Normal sinus rhythm Prolonged QT Abnormal ECG When compared with ECG of 03-Jan-2025 16:19, No significant change was found Referred By: Elisa Brito Electronically Signed By: DENICE AC MD
[2025-01-03 21:33] LABS: Troponin-I High Sensitivity 11.3 ng/L (<3.5-35.0)
[2025-01-04 00:04] VITALS: BP 123/74; PULSE 96; RESP 16; TEMP 37; O2SAT 96
[2025-01-04 00:11] LABS: Glucose, Whole Blood 394 mg/dL (60-115)
--- NOTE | 2025-01-04 01:48 | PC.NURSE ---
pt brought back to emc room 3 from . reports he is a diabetic, however cannot afford his insulin at the moment. pt changing into hospital gown, waiting to be seen by ED provider. A&Ox4, ambulates independently in no distress.
[2025-01-04 04:19] LABS: Glucose, Whole Blood 312 mg/dL (60-115)
[2025-01-04 04:20] VITALS: BP 128/72; BP 135/85; BP 137/74; PULSE 89; PULSE 94
--- NOTE | 2025-01-04 04:21 | PC.NURSE ---
orthos done. repeat poc 312. MD alfaro aware
[2025-01-04] MEDS: 0.9 % Sodium Chloride 1,000 ML 999 ML IVCONT (04:30)
[2025-01-04] MEDS: Insulin Regular, Human 100 UNIT/ML 10 ML VIAL IVPUSH (04:30)
[2025-01-04 05:30] LABS: Glucose, Whole Blood 269 mg/dL (60-115)
--- NOTE | 2025-01-04 05:40 | PC.NURSE ---
iv fluids complete. repeat poc 269. MD Farris aware.
[2025-01-04 06:59] VITALS: BP 173/91; PULSE 93; RESP 14; TEMP 36.5; O2SAT 96
--- NOTE | 2025-01-04 07:00 | PC.NURSE ---
Report taken from Mayela Fermin RN
[2025-01-04 07:29] VITALS: BP 128/89; PULSE 90; RESP 15; TEMP 36.8; O2SAT 97
[2025-01-04 07:35] VITALS: BP 128/89; PULSE 90; RESP 15; TEMP 36.8; O2SAT 97
== END 2025-01-04 07:36 | disposition home or self-care (01) ==
PROVIDERS: Physician Assistant Medical; Emergency Provider Emergency Medicine; PCP Family Medicine
DX: E11.65 Type 2 diabetes mellitus with hyperglycemia (principal); R42 Dizziness and giddiness; Z03.818 Encounter for observation for suspected exposure to other biological agents ruled out
CPT/HCPCS: 0241U; 36415; 71046; 80048; 80076; 80307; 82010; 82803; 82947; 83735; 84484; 85025; 93005; 96361; 96374; 99284; 99285

== ENCOUNTER → 2025-01-03 16:09 | Outpatient (BNV) | payer OTHER, BC, SELFPAY | PROVIDERS: Emergency Provider Emergency Medicine; PCP Family Medicine; Visit Provider Internal Medicine Cardiovascular Disease | DX: R07.9 Chest pain, unspecified (principal); R94.31 Abnormal electrocardiogram [ECG] [EKG] | CPT/HCPCS: 93010 ==

== ENCOUNTER → 2025-01-03 20:42 | Outpatient (BNV) | payer OTHER, SELFPAY | PROVIDERS: Visit Provider Radiology Diagnostic Radiology | DX: R07.9 Chest pain, unspecified (principal) | CPT/HCPCS: 71046 ==

== ENCOUNTER 2025-04-26 06:10 | Outpatient (REF) | payer BC, SELFPAY ==
[2025-04-26 07:20] LABS: Basophils Percent Auto 0.4 % (0-2); Eosinophils Absolute Auto 0.2 X10*3/uL (0.0-0.4); Hematocrit 44.5 % (42.0-52.0); Hemoglobin 15.5 g/dl (14.0-18.0); Imm Gran Abs Auto 0.03 X10*3/uL (0.00-0.03); Imm Gran Pct Auto 0.3 % (0.0-0.4); Lymphocytes Absolute Auto 2.3 X10*3/uL (1.2-4.9); Lymphocytes Percent Auto 22.8 % (20-40); MANUAL DIFF FLAG NO; Mean Corpuscular HGB Conc 34.8 g/dl (31.0-36.0); Mean Corpuscular Hemoglobin 30.1 pg (27.0-33.0); Mean Corpuscular Volume 86.4 fL (80.0-98.0); Mean Platelet Volume 10.8 fL (9.4-12.4); Monocytes Absolute Auto 0.7 X10*3/uL (0.1-1.2); Monocytes Percent Auto 6.4 % (2-11); Neutrophils Absolute Auto 6.9 x10*3/uL (2.0-8.3); Neutrophils Percent Auto 68.1 % (45-73); Platelet Count 209 X10*3/uL (160-400); Red Blood Count 5.15 X10*6/uL (4.60-5.80); Red Cell Distribution Width 12.8 % (11.0-16.0); White Blood Count 10.1 X10*3/uL (4.8-10.8)
[2025-04-26 07:33] LABS: Appearance Urine Clear; Color Urine Yellow; Glucose Urine UA Negative (Negative); Leukocyte Esterase Urine Negative (Negative); Nitrite Urine Negative (Negative); PH 8.5 (5.0-9.0); Specific Gravity - Urine 1.025 (1.005-1.025); Urine Blood Negative (Negative); Urine Ketones Trace mg/dL (Negative); Urine Protein Trace mg/dL (Neg-Trace)
[2025-04-26 07:57] LABS: Erythrocyte Sedimentation Rate 9 MM/HR (0-15)
[2025-04-26 08:00] LABS: Alanine Aminotransferase 38 U/L (0-40); Albumin Level 4.3 g/dL (3.5-5.0); Alkaline Phosphatase 93 U/L (39-117); Anion Gap 15 (12-20); Aspartate Amino Transferase 32 U/L (5-37); Bilirubin Total 3.1 mg/dL (0.0-1.0); Blood Urea Nitrogen 6 mg/dL (9-16); C Reactive Protein 0.47 mg/dL (< or = 0.50); Calcium 9.1 mg/dL (8.4-10.2); Carbon Dioxide 25 mmol/L (22-29); Chloride 105 mmol/L (96-108); Cholesterol 167 mg/dL (<200); Estimated Glomerular Filt Rate > 60; Glucose Fasting 125 mg/dL (60-99); HDL Cholesterol 49 mg/dL (>40); Iron 124 mcg/dL (45-160); LDL Cholesterol Calculated 98 mg/dL (<100); Magnesium 1.5 mg/dL (1.6-2.6); Percent Iron Saturation 43 % (15-50); Potassium 3.5 mmol/L (3.3-5.1); Sodium 141 mmol/L (135-145); Total Iron Binding Capacity 290 mcg/dL (228-428); Triglycerides 103 mg/dL (<150); Unsaturated Iron Binding 166 ug/dL
--- NOTE | 2025-04-26 08:06 | ECG_ITS ---
Test Reason : F33.2 F90.9 Blood Pressure : */* mmHG Vent. Rate : 85 BPM Atrial Rate : 85 BPM P-R Int : 144 ms QRS Dur : 86 ms QT Int : 436 ms P-R-T Axes : 25 68 72 degrees QTcB Int : 518 ms Normal sinus rhythm Nonspecific ST and T wave abnormality Prolonged QT Abnormal ECG When compared with ECG of 03-Jan-2025 20:59, Nonspecific T wave abnormality, worse in Lateral leads Referred By: Nahed Moore Electronically Signed By: TEX KEITA
[2025-04-26 08:14] LABS: Thyroid Stimulating Hormone 1.93 uIU/mL (0.32-4.0); Vitamin D 25-OH Total 13.2 ng/mL (>30)
[2025-04-26 08:27] LABS: Folate 7.7 ng/mL (> or = 4.0); Syphilis Screen Nonreactive (Nonreactive); Vitamin B12 707 pg/mL (200-900)
[2025-04-26 09:21] LABS: Estimated Average Glucose 223 mg/dL; Hemoglobin A1c % 9.4 % (<6.0); Total Hemoglobin (HGBA1C) 4167.9335 umol/L
[2025-04-30 12:33] LABS: Vitamin B1 <6 nmol/L (8-30)
[2025-04-30 15:33] LABS: Testosterone, Free 70.2 pg/mL (35.0-155.0); Testosterone, Total 447 ng/dL (250-1100)
[2025-04-30 16:23] LABS: Homocysteine 11.6 umol/L (< or = 13.5)
== END 2025-04-26 06:11 | disposition home or self-care (01) ==
LOC: HO.LAB 06:10
PROVIDERS: PCP Family Medicine; Visit Provider Psychiatry & Neurology Psychiatry
DX: F33.2 Major depressive disorder, recurrent severe without psychotic features (principal); F90.9 Attention-deficit hyperactivity disorder, unspecified type; R41.3 Other amnesia; Z13.1 Encounter for screening for diabetes mellitus; Z13.6 Encounter for screening for cardiovascular disorders
CPT/HCPCS: 36415; 80053; 80061; 81003; 82306; 82550; 82607; 82746; 83036; 83090; 83540; 83735; 84402; 84403; 84425; 84439; 84443; 85025; 85652; 86140; 86780; 93005

== ENCOUNTER → 2025-04-26 08:06 | Outpatient (BNV) | payer BC, SELFPAY | PROVIDERS: PCP Family Medicine; Visit Provider Internal Medicine | DX: R94.31 Abnormal electrocardiogram [ECG] [EKG] (principal); F33.1 Major depressive disorder, recurrent, moderate; F90.9 Attention-deficit hyperactivity disorder, unspecified type | CPT/HCPCS: 93010 ==

== ENCOUNTER → 2025-04-27 11:15 | Outpatient (BNV) | payer BC, SELFPAY | PROVIDERS: Visit Provider Psychiatry & Neurology Psychiatry | DX: F33.9 Major depressive disorder, recurrent, unspecified (principal); F90.9 Attention-deficit hyperactivity disorder, unspecified type; F63.89 Other impulse disorders; F41.3 Other mixed anxiety disorders | CPT/HCPCS: 99214; 99499 ==

== ENCOUNTER 2025-05-11 10:45 | Outpatient (RCR) | payer BC, SELFPAY ==
[2025-04-25 11:54] VITALS: BMI 39.6
--- NOTE | 2025-04-25 13:22 | PC.ADMIT ---
Patient is a 44 year old single male who was referred to [facility] by [facility] where he was admitted from 04/14-04/17/25 secondary to increased anxiety and depression. I asked patient what was happening prior to Respite. Patient stated, One of my close supports, someone I thought I was dating, told me she was dating someone else. We were just friends . Patient stated he has known this person since high school. Patient reports he is on a PABLO from work since April 12, 2024. I haven't worked a full week of work as my anxiety gets to me . Patient reports history of heavy marijuana use since September 2024 using daily throughout the day when not working and using when he gets home from work. Reports he wants support with quitting use. Reports last use was on Thursday04/23/25. Patient reports marijuana makes his anxiety worse. Patient reports panic attacks, last one was 15 minutes ago. Patient stated he was meeting with the [facility] doctor who talked to him about new medications. Patient stated, I'm unable to afford new medication right now as I have a co-pay of about 15 dollars on medications. I'm hoping to get a paycheck tomorrow or the next day. Regarding supports patient stated, I can't tell my family they get worked up and worried. Patient reports his brother has been moderately supportive. Patient reports he has type Ii diabetes. Patient reports he checks his blood sugar daily and they range from 151-185. Patient reports this is an improvement as his blood sugars have been higher. Patient is alert and oriented x4. He is calm and cooperative. Stated he has attended [facility]'s in the past and found it helpful. Reports he is glad to be her getting help. Patient presented with depressed mood and anxious affect. He denied SI, no HI. He was given a copy of his safety plan if needed. Medications updated with patient and discharge medication list from [facility]. Patient reports he is taking medications as prescribed.
--- NOTE | 2025-04-25 20:29 | HO.PS.ADMBH ---
HPI Date of Service: 04/25/25 Chief Complaint: depression,anxiety,ADHD Sources of Information: patient interviewed, chart reviewed and crisis/core team assessment reviewed HPI Narrative: This is a 44 yo male with history of depression, anxiety, substance issues and ADHD was self referred to PHP for worsening depression, anxiety in context of relationship and other psychosocial stressors. ?I had been dating a friend for a little while, week broke up 3 weeks ago and it has started to go downhill from there . He was feeling increasingly hopeless, (especially fears of winding up alone in life), with transient passive SI of not wanting to wake up, but says he would never be at risk of having suicidal thoughts. He denies any history of SI and says even the thoughts of not wanting to wake up are occurring less often lately. ?I have accepted things, trying to move on from dating for now? Past Psychiatric History: IPLOC: none PHP: previously (1st time at [facility] [place] SA: denies SIB: Aggression: Previous medications trials: CURRENT MEDICATIONS: Lexapro 20 mg qd Abilify 5 mg qam Buspar 30 mg BID Wellbutrin XL 300 mg qam Methylphenidate ER 30 mg qam metformin 2000 mg qd pioglitazone 30 mg qd Lantus 50 units subcut qd [facility] Medical History (Updated 04/30/25 @ 19:05 by Nahed Moore MD) Sleep apnea Asthma Anxiety and depression Type 2 diabetes mellitus Morbid obesity with BMI of 40.0-44.9, adult Depression Anxiety HTN (hypertension) Surgical History (Updated 10/10/23 @ 02:42 by David Ramos MD) H/O adenoidectomy Diagnostics Vital Signs (24Hr): BMI result Body Mass Index 39.6 Meds/Allergies Meds Home Medications ?Medication ?Instructions ?Recorded ?Confirmed ?Type pioglitazone 30 mg tablet 30 mg PO DAILY 10/10/23 04/25/25 History aripiprazole 5 mg tablet (Abilify) 5 mg PO DAILY 04/25/25 04/25/25 History bupropion HCl 300 mg 24 hr tablet, 300 mg PO DAILY 04/25/25 04/25/25 History extended release insulin glargine 100 unit/mL (3 50 unit subcut DAILY 04/25/25 04/25/25 History mL) subcutaneous pen (Lantus Solostar U-100 Insulin) metformin 500 mg tablet 2,000 mg PO DAILY 04/25/25 04/25/25 History Allergies Allergies Allergy/AdvReac Type Severity Reaction Status Date / Time dulaglutide (From Trulicity) Allergy Abdominal Verified 01/03/25 16:30 Pain semaglutide (From Ozempic) Allergy Gastrointestinal Verified 01/03/25 16:30 Upset Mental Status Exam Mental Status Exam Narrative: Alert, oriented, in no acute distress. Calm, cooperative, engaged, friendly. Energetic with no psychomotor agitation or neurovegetative retardation. Eye contact maintained. Mood depressed, affect brighter than expected,variable without notable lability. Speech normal. Thought process linear, coherent. Thought content related to stressors, transient helplessness, no hopelessness noted, denies SI, intention, urge or plan. Denies any aggressive ideation or HI. No paranoia or delusional content elicited. No evidence of psychosis. Insight and judgment - fair-good. Assessment & Plan Assessment & Plan (1) MDD (major depressive disorder), recurrent episode: Status: Acute Code(s): F33.9 - Major depressive disorder, recurrent, unspecified (2) Attention-deficit hyperactivity disorder, unspecified type: Status: Acute Code(s): F90.9 - Attention-deficit hyperactivity disorder, unspecified type (3) Other impulse disorders: Status: Acute Code(s): F63.89 - Other impulse disorders (4) Other mixed anxiety disorders: Status: Acute Code(s): F41.3 - Other mixed anxiety disorders Plan Admit to [facility] VS reviewed: afebrile, BP ;? bpm hold MPH ER 30 mg qam start Vyvanse 20 mg qam start guanfacine ER 1 mg qam continue Lexapro 20 mg qd continue Abilify 5 mg qam continue Buspar 30 mg BID continue Wellbutrin XL 300 mg qam continue other medications: metformin 2000 mg qd, pioglitazone 30 mg qd, Lantus 50 units subcut qd discussed possible starting gbt or something for sleep Routine lab work slip given - will check HbA1c and metabolic panel EKG, routine for baseline QTc for medication considerations as indicated UDS as indicated MassPat reviewed Continue to monitor as per protocol Patient educated on: diagnosis, medication risk/benefits and substance abuse Informed Consent: understands Reason for continued partial hosp. stay Substantial Risk for: inability to function and med/psych decompensation Certification I certify that partial hospital treatment is medically necessary due to the symptoms and problems resulting from the patient's mental illness and the failure to treat the patient at the partial hospital level of care would likely result in the patient requiring inpatient psychiatric care which could not be prevented at a less intensive level of care. Time Spent With Patient Time: Total time managing care of this patient today __90__ minutes.
--- NOTE | 2025-04-27 10:12 | PC.NURSE ---
Dr Moore is aware of patient's EKG results NSR, Nonspecific ST and T wave abnormality, prolonged QT 436, QTC 518 and Lab results BUN 6, FBS 125, A1C 9.4, Mag 1.5, T Bili 3.1, Total Creat Kinase 279, Vitamin D 13.2.
--- NOTE | 2025-04-27 15:49 | HO.PHP ---
Client's case has been opened and reviewed in team.
--- NOTE | 2025-04-27 21:06 | PM.EVENT ---
Event Note Date of Service: 04/27/25 Event Note: Spoke with patient to relay abnormal EKG and preliminary lab findings. QTc prolonged 518 ms, has been present on all past EKGs ( x4) in chart dating back to 10/2023 with length varying from 490- 518 ms. Reviewed medications, escitalopram most likely to prolong QTc vs other medications (Concerta, Abilify, buspirone, less likely, WB generally shortens interval. Will lower dose to 15 mg for now (may consider switching to sertraline or other agent vs staying on lower dose of escitalopram). Start vit D2 50k units qd, and otc magnesium glycinate supplement at 400 mg/d) Time Spent With Patient Time: Total time managing care of this patient today __20__ minutes.
--- NOTE | 2025-04-28 18:03 | HO.PHPPROGNO ---
Subjective Subjective Date of Service: 04/28/25 Reason For Visit: depression,anxiety,ADHD Interim History: Patient seen for follow-up. ?Doing better?, still struggling with some anxiety, self-esteem issues, ruminating thoughts can get obsessive. Says it can be about various things including relationship stressors but also interests, hobbies, impulsive shopping ?buying things I just do not need but they look interesting at the time or convince myself I need them . Says he tends to shop when he has access to money and does not feel mood related. Is currently at Vyvanse 40 mg denies any adverse effects,, is not sure exactly if it is helpful yet but is not causing any issues impulsivity his about at the same level he has not gone up on Abilify at and have written out medication changes so he does not miss any. We will plan to gradually titrate Abilify towards 10 mg a day (and split dose as he is already taking 5 mg in the morning, will start adding on medication in the evening). He is also agreeable to starting a 2nd dose of guanfacine in the afternoon as this is when his anxiety and impulsivity tend to slat pickler later in the day when his stimulant medication is wearing off. Continues to have some trouble with falling asleep this is a longer-term issue does not feel stimulants have made this any more difficult. We will plan to start gabapentin tonight for sleep. Denies any current thoughts of harming self or others. Medication Compliance: Yes Side effects from medications: No Attending Groups: Yes Review of Systems Acute medical concerns: No Mental Status Exam Mental Status Exam Narrative: Alert, oriented, in no acute distress. Calm, cooperative, engaged, friendly. Energetic with no psychomotor agitation or neurovegetative retardation. Eye contact maintained. Mood depressed, affect brighter than expected,variable without notable lability. Speech normal. Thought process linear, coherent. Thought content related to stressors, transient helplessness, no hopelessness noted, denies SI, intention, urge or plan. Denies any aggressive ideation or HI. No paranoia or delusional content elicited. No evidence of psychosis. Insight and judgment - fair-good. Diagnostics Vital Signs (24Hr): BMI result Body Mass Index 39.6 Assessment & Plan Assessment & Plan (1) MDD (major depressive disorder), recurrent episode: Status: Acute Code(s): F33.9 - Major depressive disorder, recurrent, unspecified (2) Attention-deficit hyperactivity disorder, unspecified type: Status: Acute Code(s): F90.9 - Attention-deficit hyperactivity disorder, unspecified type (3) Other impulse disorders: Status: Acute Code(s): F63.89 - Other impulse disorders (4) Other mixed anxiety disorders: Status: Acute Code(s): F41.3 - Other mixed anxiety disorders Plan Continue PHP continue at Vyvanse 40 mg qam increase guanfacine ER 1 mg from qam to BID continue Lexapro 15 mg qd, plan to further decrease next week to 10 mg (will plan to recheck QTc) increase Abilify 5 mg from qam to 5 mg in AM and 2.5 mg HS x 2 days then increase to 5 mg BID continue Buspar 30 mg BID continue Wellbutrin XL 300 mg qam start gabapentin 300-600 mg qhs for anxiety, sleep, neuropathy continue other medications: metformin 2000 mg qd, pioglitazone 30 mg qd, Lantus 50 units subcut qd discontinued: MPH ER 30 mg, Routine lab work slip given - will check HbA1c and metabolic panel EKG, routine for baseline QTc: 518 ms, escitalopram lowered, will recheck QTc next week (consider other options as indicated) UDS as indicated VS reviewed: afebrile, BP ;?85 bpm (EKG) Continue to monitor l Patient educated on: diagnosis, medication risk/benefits and medical condition Informed Consent: understands Reason for contiued partial hosp. stay Substantial Risk for: inability to function and med/psych decompensation Certification I certify that partial hospital treatment is medically necessary due to the symptoms and problems resulting from the patient's mental illness and the failure to treat the patient at the partial hospital level of care would likely result in the patient requiring inpatient psychiatric care which could not be prevented at a less intensive level of care. Total time managing care of this patient today __30__ minutes. Discharge Plan Discharge Attending provider: Nahed Moore Medications: New lisdexamfetamine [Vyvanse] 20 mg capsule 20 mg PO QAM Qty: 30 0RF Rx Instructions: Partial Fill upon patient request. guanfacine 1 mg tablet extended release 24 hr 1 mg PO DAILY Qty: 30 0RF escitalopram oxalate 10 mg tablet 15 mg PO DAILY Qty: 45 0RF ergocalciferol (vitamin D2) [Vitamin D2] 1,250 mcg (50,000 unit) capsule 1,250 mcg PO QWEEK Qty: 12 0RF aripiprazole 10 mg tablet 5 mg PO BID Qty: 30 0RF gabapentin 300 mg capsule 300 - 600 mg PO BEDTIME PRN (Reason: sleep) Qty: 30 0RF Continued escitalopram oxalate 20 mg tablet 20 mg PO DAILY pioglitazone 30 mg tablet 30 mg PO DAILY buspirone 30 mg tablet 30 mg PO BID aripiprazole [Abilify] 5 mg Tablet 5 mg PO DAILY metformin 500 mg Tablet 2,000 mg PO DAILY Rx Instructions: Take 4 tabs daily. bupropion HCl 300 mg tablet extended release 24 hr 300 mg PO DAILY Patient Comments: Patient stated he takes this medication daily. insulin glargine [Lantus Solostar U-100 Insulin] 100 unit/mL (3 mL) insulin pen 50 unit subcut DAILY No Action methylphenidate HCl 20 mg tablet extended release 20 mg PO DAILY Rx Instructions: Take with Methylphenidate ER 10 mg tab daily. methylphenidate HCl 10 mg Tablet Extended Release 10 mg PO DAILY Stand Alone Forms: Patient Portal Discharge page Print Language: Swedish
--- NOTE | 2025-05-03 13:59 | HO.PHP ---
[facility] staff member followed up with Kade due to him reporting thoughts of SI with a plan and no intent. Kade disclosed that he has thoughts of either hanging himself or shooting himself. [facility] staff member explored if he has access to a gun. Kade disclosed that he does not have access to any of these things to act on his thoughts. Kade mentioned he has no plan to act on these thoughts and he dislikes that he even has these thoughts. Kade expressed that these thoughts have been ongoing for about a month. [facility] staff member asked Kade about what stops him from acting on those thoughts. Kade reported his protective factors are his family, friends, and child. Kdae stated if he did not have financial stressors then he does not feel these thoughts would be there. Kade noted that he is supposed to be getting paid his PFMLA but the office messed up the paperwork, therefore, he isn't receiving pay until May 06, 2025. Kade shared how his mother wants him to go back to work but he feels that would be impossible to work on his mental health and go to work at the same time because he works first shift. [facility] staff member was receptive. Kade talked about how after program he is going to attend his doctors appointment and overall he is safe. Kade acknowledged that if the thoughts increase he has three different crisis lines to contact and has no problem utilizing them. Kade stated he feels safe overall and will be in attendance to program tomorrow.
--- NOTE | 2025-05-04 12:49 | P.PNPSP_ITS ---
Subjective Subjective Date of Service: 05/04/25 Reason For Visit: depression,anxiety,ADHD Interim History: DOing well with medication MOod is better change is noticable day to day Anxiety has been okay manageable even despite financial issues Sleep intact with gabapentin 600 mg qhs Lexpaaro at 15 mg qd, ABilify at 10 mg/d (split) Mood stability at a 7 out o10. We will continue to lower escitalpram due to prolonged QTc. Medication Compliance: Yes Side effects from medications: No Attending Groups: Yes Review of Systems Acute medical concerns: No Mental Status Exam Mental Status Exam Narrative: Alert, oriented, in no acute distress. Calm, cooperative, engaged, friendly. Energetic with no psychomotor agitation or neurovegetative retardation. Eye contact maintained. Mood better , affect brighter than expected,variable without notable lability. Speech normal. Thought process linear, coherent. Thought content related to stressors, no hopelessness noted, denies SI, intention, urge or plan. Denies any aggressive ideation or HI. No paranoia or delusional content elicited. No evidence of psychosis. Insight and judgment - fair-good. Diagnostics Vital Signs (24Hr): BMI result Body Mass Index 39.6 Assessment & Plan Assessment & Plan (1) MDD (major depressive disorder), recurrent episode: Status: Acute Code(s): F33.9 - Major depressive disorder, recurrent, unspecified (2) Attention-deficit hyperactivity disorder, unspecified type: Status: Acute Code(s): F90.9 - Attention-deficit hyperactivity disorder, unspecified type (3) Other impulse disorders: Status: Acute Code(s): F63.89 - Other impulse disorders (4) Other mixed anxiety disorders: Status: Acute Code(s): F41.3 - Other mixed anxiety disorders Plan Continue PHP continue Vyvanse 40 mg qam continue guanfacine ER 1 mg BID continue Lexapro 15 mg qd, plan to further decrease next week to 10 mg (will plan to recheck QTc) continue Abilify 5 mg BID continue Buspar 30 mg BID continue Wellbutrin XL 300 mg qam continue gabapentin 300-600 mg qhs for anxiety, sleep, neuropathy continue other medications: metformin 2000 mg qd, pioglitazone 30 mg qd, Lantus 50 units subcut qd discontinued: MPH ER 30 mg, Routine lab work slip given - will check HbA1c and metabolic panel EKG, routine for baseline QTc: 518 ms, escitalopram lowered, will recheck QTc next week (consider other options as indicated) UDS as indicated VS reviewed: afebrile, BP ;?85 bpm (EKG) Continue to monitor l Patient educated on: diagnosis, medication risk/benefits and medical condition Informed Consent: understands Reason for contiued partial hosp. stay Substantial Risk for: inability to function and med/psych decompensation Certification I certify that partial hospital treatment is medically necessary due to the symptoms and problems resulting from the patient's mental illness and the failure to treat the patient at the partial hospital level of care would likely result in the patient requiring inpatient psychiatric care which could not be prevented at a less intensive level of care. Total time managing care of this patient today ____ minutes. Discharge Plan Discharge Attending provider: Nahed Moore Medications: New ergocalciferol (vitamin D2) [Vitamin D2] 1,250 mcg (50,000 unit) capsule 1,250 mcg PO QWEEK Qty: 12 0RF aripiprazole 10 mg tablet 5 mg PO BID Qty: 30 0RF lisdexamfetamine 50 mg capsule 50 mg PO QAM Qty: 30 0RF Rx Instructions: Partial Fill upon patient request. gabapentin 600 mg tablet 600 - 1,200 mg PO BEDTIME Qty: 60 0RF guanfacine 2 mg tablet extended release 24 hr 2 mg PO QAM Qty: 30 0RF guanfacine 1 mg tablet extended release 24 hr 1 mg PO QPM Qty: 30 0RF buspirone 15 mg tablet See Rx Instructions .ROUTE .COMPLEX Qty: 120 0RF Rx Instructions: take 2 tablets po QAM, take one tablet po daily in afternoon, take 1 tablet po QHS thiamine HCl (vitamin B1) 100 mg tablet 100 mg PO DAILY Qty: 30 2RF Continued pioglitazone 30 mg tablet 30 mg PO DAILY aripiprazole [Abilify] 5 mg Tablet 5 mg PO DAILY metformin 500 mg Tablet 2,000 mg PO DAILY Rx Instructions: Take 4 tabs daily. bupropion HCl 300 mg tablet extended release 24 hr 300 mg PO DAILY Patient Comments: Patient stated he takes this medication daily. insulin glargine [Lantus Solostar U-100 Insulin] 100 unit/mL (3 mL) insulin pen 50 unit subcut DAILY Changed escitalopram oxalate 10 mg tablet 10 mg PO DAILY Qty: 45 0RF Discontinued escitalopram oxalate 20 mg tablet 20 mg PO DAILY buspirone 30 mg tablet 30 mg PO BID methylphenidate HCl 20 mg tablet extended release 20 mg PO DAILY Rx Instructions: Take with Methylphenidate ER 10 mg tab daily. methylphenidate HCl 10 mg Tablet Extended Release 10 mg PO DAILY Stand Alone Forms: Patient Portal Discharge page Patient Education: ADHD in Adults (ED), ADHD in Adults (DC), Depression (DC), Anxiety (ED) Print Language: Croatian
--- NOTE | 2025-05-11 23:59 | P.PNPSP_ITS ---
Subjective Subjective Date of Service: 05/11/25 Reason For Visit: depression,anxiety,ADHD Interim History: Patient seen for follow-up, anticipating discharge at the end of program today.? Reports no acute issues or concerns. Medication compliant, medications well- tolerated. Denies any adverse effects.? Mood is stable.? Denies any hopelessness or SI. Denies thoughts of harming self or others at this time. Denies any aggressive ideation or HI. Denies any paranoia or AH or VH. Sleep, appetite, energy stable. Medication Compliance: Yes Side effects from medications: No Attending Groups: Yes Review of Systems Acute medical concerns: No Mental Status Exam Mental Status Exam Narrative: Alert, oriented, in no acute distress. Calm, cooperative. Mood stable, affect appropriate. Speech normal. Thought process linear, coherent, more goal- directed. Thought content related to stressors, future-oriented, denies any helplessness, hopelessness or SI.? No aggressive ideation or HI. No paranoia or delusional content elicited. No evidence of psychosis. Insight and judgment fair-good. Diagnostics Vital Signs (24Hr): BMI result Body Mass Index 39.6 Assessment & Plan Assessment & Plan (1) MDD (major depressive disorder), recurrent episode: Status: Acute Code(s): F33.9 - Major depressive disorder, recurrent, unspecified (2) Attention-deficit hyperactivity disorder, unspecified type: Status: Acute Code(s): F90.9 - Attention-deficit hyperactivity disorder, unspecified type (3) Other impulse disorders: Status: Acute Code(s): F63.89 - Other impulse disorders (4) Other mixed anxiety disorders: Status: Acute Code(s): F41.3 - Other mixed anxiety disorders Plan Discharge from [facility] continue at Vyvanse at 50 mg qam continue guanfacine ER at 2 mg from qam continue guanfacine ER 1 mg qhs continue Lexapro 10 mg continue Abilify 5 mg qd continue Buspar 30 mg BID continue Wellbutrin XL 300 mg qam continue gabapentin 300-600 mg qhs for anxiety, sleep, neuropathy continue other medications: metformin 2000 mg qd, pioglitazone 30 mg qd, Lantus 50 units subcut qd discontinued: [facility] ER 30 mg, Routine lab work slip given - will check HbA1c and metabolic panel EKG, routine for baseline QTc: 518 ms, escitalopram lowered, will recheck QTc next week (consider other options as indicated) Refills sent to pharmacy Will defer further medication management to outpatient provider *Safety plan reviewed *Discharge diagnoses, treatment course, discharge plan have been reviewed with patient (including medication regime, medication management, potential side effects) as well as treatment rationale were also revisited *Discharge paperwork signed and given to patient, copy sent for scanning to chart Patient educated on: diagnosis and medication risk/benefits Informed Consent: understands Reason for contiued partial hosp. stay Substantial Risk for: stable for discharge Certification I certify that partial hospital treatment is medically necessary due to the symptoms and problems resulting from the patient's mental illness and the failure to treat the patient at the partial hospital level of care would likely result in the patient requiring inpatient psychiatric care which could not be prevented at a less intensive level of care. Total time managing care of this patient today __30__ minutes. Discharge Plan Discharge Attending provider: Nahed Moore Medications: New ergocalciferol (vitamin D2) [Vitamin D2] 1,250 mcg (50,000 unit) capsule 1,250 mcg PO QWEEK Qty: 12 0RF aripiprazole 10 mg tablet 5 mg PO BID Qty: 30 0RF lisdexamfetamine 50 mg capsule 50 mg PO QAM Qty: 30 0RF Rx Instructions: Partial Fill upon patient request. gabapentin 600 mg tablet 600 - 1,200 mg PO BEDTIME Qty: 60 0RF guanfacine 2 mg tablet extended release 24 hr 2 mg PO QAM Qty: 30 0RF guanfacine 1 mg tablet extended release 24 hr 1 mg PO QPM Qty: 30 0RF buspirone 15 mg tablet See Rx Instructions .ROUTE .COMPLEX Qty: 120 0RF Rx Instructions: take 2 tablets po QAM, take one tablet po daily in afternoon, take 1 tablet po QHS thiamine HCl (vitamin B1) 100 mg tablet 100 mg PO DAILY Qty: 30 2RF Continued pioglitazone 30 mg tablet 30 mg PO DAILY aripiprazole [Abilify] 5 mg Tablet 5 mg PO DAILY metformin 500 mg Tablet 2,000 mg PO DAILY Rx Instructions: Take 4 tabs daily. bupropion HCl 300 mg tablet extended release 24 hr 300 mg PO DAILY Patient Comments: Patient stated he takes this medication daily. insulin glargine [Lantus Solostar U-100 Insulin] 100 unit/mL (3 mL) insulin pen 50 unit subcut DAILY Changed escitalopram oxalate 10 mg tablet 10 mg PO DAILY Qty: 45 0RF Discontinued escitalopram oxalate 20 mg tablet 20 mg PO DAILY buspirone 30 mg tablet 30 mg PO BID methylphenidate HCl 20 mg tablet extended release 20 mg PO DAILY Rx Instructions: Take with Methylphenidate ER 10 mg tab daily. methylphenidate HCl 10 mg Tablet Extended Release 10 mg PO DAILY Stand Alone Forms: Patient Portal Discharge page Patient Education: ADHD in Adults (ED), ADHD in Adults (DC), Depression (DC), Anxiety (ED) Print Language: Uruguayan
== END 2025-05-11 23:59 | disposition home or self-care (01) ==
LOC: HO.PHPA 10:45
PROVIDERS: Visit Provider Psychiatry & Neurology Psychiatry
DX: F33.9 Major depressive disorder, recurrent, unspecified (principal); F90.9 Attention-deficit hyperactivity disorder, unspecified type; F63.89 Other impulse disorders; F41.3 Other mixed anxiety disorders; Z79.899 Other long term (current) drug therapy
CPT/HCPCS: 90791; 90853

== ENCOUNTER 2025-09-12 09:57 | Emergency (ER) | payer OTHER, SELFPAY ==
--- NOTE | ~2025-09-12 | XR_ITS ---
EXAMINATION: XR HIP, RIGHT CLINICAL INFORMATION: pain, reports prior injury COMPARISON: None available. TECHNIQUE: Two views of the right hip and one view of the pelvis. FINDINGS: Bone alignment is normal. No fracture or dislocation. Mild arthritis of both hip joints with small osteophytes. Small sclerotic density in the left iliac bone measuring 1 cm. This is nonspecific, but may represent a bone island. Soft tissues are unremarkable. XR/XR hip RT w PEL1V IMPRESSION: No fracture or dislocation. Mild bilateral hip osteoarthritis. Electronically signed by: Yashira Vu MD 09/12/2025 10:44 AM JOSE MARIA
[2025-09-12 10:09] VITALS: BP 170/97; PULSE 73; O2SAT 99
[2025-09-12 10:26] VITALS: BP 179/94; PULSE 80; RESP 20; TEMP 36.1; O2SAT 96; BMI 42.2
--- NOTE | 2025-09-12 10:27 | ED_ITS ---
HPI - General Adult General Chief complaint: Back Pain/Injury Stated complaint: LOW R BACK RAD TO R LEG PAIN X3D Time Seen by Provider: 09/12/25 10:54 Source: patient, EMS, RN notes reviewed and old records reviewed Mode of arrival: EMS Limitations: no limitations History of Present Illness ED Provider: Brent HPI narrative: Patient is a 44 year old male presenting with complaint of right hip and lower back pain radiating down right leg x 1 week. Reports history of injury earlier this year. Denies saddle anesthesia, b/b incontinence, fevers, IVDU. Was incontinent yesterday but because he was unable to get OOB quickly enough due to pain. Has used Aleve, ibuprofen with little relief. Laying only thing that relieves pain. Denies weakness, numbness, tingling. Blood pressure elevated in triage, denies headache, vision changes, chest pain, shortness of breath, dizziness or lightheadedness. MD complaint: back and hip pain Onset (ago): week(s) Related Data Home Medications ?Medication ?Instructions ?Recorded ?Confirmed pioglitazone 30 mg tablet 30 mg PO DAILY 10/10/2304/03 aripiprazole 5 mg tablet (Abilify) 5 mg PO DAILY 04/2504/25/25 bupropion HCl 300 mg 24 hr tablet, 300 mg PO DAILY 04/25/25 extended release insulin glargine 100 unit/mL (3 50 unit subcut DAILY 0 04/25/25 04/25/25 mL) subcutaneous pen (Lantus Solostar U-100 Insulin) metformin 500 mg tablet 2,000 mg PO DAILY 04/25/25 0 04/25/25 Previous Rx's ?Medication ?Instructions ?Recorded ergocalciferol (vitamin D2) 1,250 1,250 mcg PO QWEEK # 12 caps 04/27/25 mcg (50,000 unit) capsule (Vitamin D2) aripiprazole 10 mg tablet 5 mg (1/2 x 10 mg) PO BID #3 0 tabs 04/28/25 buspirone 15 mg tablet See Rx Instructions .Route 0 05/11/25 .COMPLEX #120 tabs escitalopram oxalate 10 mg tablet 10 mg PO DAILY #45 t abs 05/11/25 gabapentin 600 mg tablet 600 - 1,200 mg (1 - 2 x 600 mg) PO 05/11/25 BEDTIME as directed #60 tabs guanfacine 1 mg tablet,extended 1 mg PO QPM #30 tabs 0 05/11/25 release 24 hr guanfacine 2 mg tablet,extended 2 mg PO QAM #30 tabs 0 05/11/25 release 24 hr lisdexamfetamine 50 mg capsule 50 mg PO QAM #30 caps 0 05/11/25 thiamine HCl (vitamin B1) 100 mg 100 mg PO DAILY #30 t abs 05/11/25 tablet lidocaine 5 % topical patch 1 patch topical DAILY #15 ea 09/12/25 naproxen 500 mg tablet 500 mg PO BID #14 tabs 09/12 prednisone 10 mg tablet See Rx Instructions .Route 1 11/12/24 .COMPLEX #15 tabs Allergies Allergy/AdvReac Type Severity Reaction Status Date / Time dulaglutide (From Trulicity) Allergy Abdominal Verified 09/12/25 10:30 Pain semaglutide (From Ozempic) Allergy Gastrointestinal Verified 09/12/25 10:30 Upset Review of Systems Review of Systems: as per hpi Yes all other systems are reviewed and are negative Constitutional: Constitutional: Reports as [facility] Past Medical History Medical History (Updated 09/12/25 @ 10:58 by Allison Kennedy NP) Sleep apnea Asthma Anxiety and depression Type 2 diabetes mellitus Morbid obesity with BMI of 40.0-44.9, adult Depression Anxiety HTN (hypertension) Surgical History (Updated 10/10/23 @ 02:42 by David Ramos MD) H/O adenoidectomy Social History Social History Household Members: Other Household Members Other:: Cat Alcohol intake: current Alcohol intake frequency: holidays/special occasions only Patient Tobacco Use Status: Never used Tobacco Substance Use Type: Marijuana Advance Directives: No Advance Directives Information Provided: Yes Do you have a plan to hurt others: No Plan service: No Physical Exam ED Vital Signs: Vital Signs - 24 hr 09/12/25 10:26 Temperature 97.0 F Pulse Rate 80 Respiratory Rate 20 Blood Pressure 179/94 H Pulse Oximetry 96 Oxygen Delivery Method Room Air BMI result Body Mass Index 42.2 Vital signs have been reviewed and appear to be correct. Blood pressure elevated. Heart rate normal. Respiratory rate normal. Temperature normal. Oxygen saturation normal. Const General: cooperative, healthy appearing and no acute distress Orientation/consciousness: oriented to person, oriented to place, oriented to time and patient oriented x3 Limitations: no limitations [facility] Head: Yes normocephalic and Yes atraumatic Ears: external ears normal General nose exam: Normal external nose present Face and sinus: Yes face symmetric Mouth: oropharynx normal and moist mucous membranes Throat: Yes uvula midline Eyes Pupils: Equal, round and reactive pupils present Neck Neck: Yes normal visual inspection, Yes no meningeal signs and Yes supple Resp Effort & Inspection: normal respiratory effort and able to speak in complete sentences Auscultation: clear to auscultation bilaterally Cardio Rate: regular rate Rhythm: regular rhythm Heart sounds: S1 normal heart sound present and S2 normal heart sound present GI Palpation (GI): Soft to palpation and nontender Auscultation: normoactive bowel sounds General: Yes no CVA tenderness Back/Spine/Pelvis Back: no CVA tenderness Thoracic/Lumbar Spine: thoracic and lumbar spine normal to inspection, thoraco- lumbar ROM normal, straight leg raise negative bilaterally, pain with thoraco- lumbar ROM, paraspinal muscle tenderness bilaterally in the upper lumbar, No thoracic spinal tenderness and No lumbar spinal tenderness Skin General skin exam: elasticity normal and turgor normal Neuro General: oriented to person, oriented to place, oriented to time, patient oriented x3, gait normal, tone normal, moves all extremities, Normal light touch and pain sensation, no meningeal signs, no focal motor deficits, CN's II-XI intact bilaterally and deep tendon reflexes 2+ bilaterally Cranial nerves: Yes Equal, round and reactive pupils present Cognition (Neuro): normal cognition Motor exam (neuro): 5/5 motor strength present throughout, Normal motor muscle tone present throughout and Motor abnormalities not present Extrem General: Yes full ROM, Yes no pedal edema and Yes no calf tenderness Psych Mental Status: mental status grossly normal Affect: normal affect Thought process: Normal thought process present Course Course Course Narrative: This is a rapid medical exam performed by Bulmaro Kennedy NP: Additional HPI, ROS, PE not included below will be deferred to primary provider. Patient is a 44y/o M presenting with complaint of right hip and lower back pain radiating down R leg x 1 week. Reports hx of injury earlier this year. Denies saddle anesthesia, b/b incontinence, fevers, IVDU. Was incontinent yesterday but because he was unable to get OOB quickly enough due to pain. Has used Aleve, ibuprofen with little relief. Laying only thing that relieves pain. Plan: x-ray given hx of prior injury Medications Administered Discontinued Medications Generic Name Dose Route Start Last Admin Trade Name Jesus PRN Reason Stop Dose Admin Ketorolac Tromethamine 30 mg 09/12/25 11:51 09/12/25 12:14 Ketorolac Tromethamine 30 Mg/Ml Vial IM 09/12/25 11:52 30 mg ONCE ONE Administration Prednisone 60 mg 09/12/25 11:51 09/12/25 12:14 Prednisone 20 Mg Tablet PO 09/12/25 11:52 60 mg ONCE ONE Administration Medical Decision Making Medical Decision Making [facility] Narrative: Patient is a 44y/o M presenting with complaint of right hip and lower back pain radiating down R leg x 1 week. On exam patient is awake, A+Ox3, BP elevated, likely due to pain, VS otherwise WNL, afebrile, normal neurological exam without focal deficits, physical exam findings as above. Given reported symptoms and p hysical exam findings, initial differential includes but is not limited to initial differential includes lumbar strain, lumbar radiculopathy, degenerative disc disease, disc herniation, spinal stenosis, spondylosis. Less likely vertebral fracture. Do not suspect malignancy/mass, SEA, cauda equina/cord compression. X-ray right hip/pelvis notable for mild bilat osteoarthritis. My interpretation is in agreement with the radiologist's interpretation. Results discussed with patient and all questions answered. Will treat with tapering course of prednisone, naproxen and topical lidocaine patches. Advised follow up with PCP for ongoing symptoms. Return precautions discussed. Patient verbalized understanding of and agreement with plan. Differential Diagnosis Differential Diagnoses: The differential diagnosis associated with the presentation includes as per [facility] Admission/Observation Patient would have been admitted to the hospital and transferred to appropriate facility had their clinical presentation warranted hospital admission. Independent Interpretation I performed an independent interpretation of an: Plain X-Ray Interpretation: Right hip and pelvis x-ray notable for osteoarthritis Radiology Impression Discussion of test interpretation with radiology: I have reviewed the radiologist's reading. Radiologist Impression: XR/XR hip RT w [id number] IMPRESSION: No fracture or dislocation. Mild bilateral hip osteoarthritis. External Record Review External record reviewed: Inpatient record, Office record and Outpatient record Prescription Management I considered prescription management with: Pain Medication and Other Discharge Plan Discharge Clinical Impression: Lumbar radiculopathy Patient Disposition: Home, Self-Care Instructions: Lumbar Radiculopathy (ED) Additional Instructions: You were evaluated in the emergency department today for lower back pain. This is likely due to an inflammation of the sciatic nerve with runs from the lower back down both legs. You are being prescribed a course of prednisone which is a steroid to decrease inflammation. You are also being prescribed naproxen which is an anti-inflammatory medication. You have been prescribed 5% topical lidocaine patches which you can wear for up to 12 hours in a 24 hour period. Do not apply heat directly over the patches. Use all medications as prescribed. Please schedule an appointment for follow-up with your primary care physician this week for further evaluation of your symptoms. Return to the emergency department if you experience worsening back pain, difficulty walking, fevers, numbness, tingling, incontinence, groin numbness or tingling, or any other concerning symptoms. Prescriptions: New prednisone 10 mg tablet See Rx Instructions .ROUTE .COMPLEX Qty: 15 0RF Rx Instructions: 50mg (5 tabs) x1 day, then 40 mg (4 tabs) x1 day, then 30 mg (3 tabs) x1 day, then 20 mg (2 tabs) times 1 day, then 10 mg (1 tab) x1 day naproxen 500 mg tablet 500 mg PO BID Qty: 14 0RF lidocaine 5 % adhesive patch,medicated 1 patch topical DAILY Qty: 15 0RF Rx Instructions: leave on most painful area for up to 12 hrs No Action pioglitazone 30 mg tablet 30 mg PO DAILY aripiprazole [Abilify] 5 mg Tablet 5 mg PO DAILY metformin 500 mg Tablet 2,000 mg PO DAILY Rx Instructions: Take 4 tabs daily. bupropion HCl 300 mg tablet extended release 24 hr 300 mg PO DAILY Patient Comments: Patient stated he takes this medication daily. insulin glargine [Lantus Solostar U-100 Insulin] 100 unit/mL (3 mL) insulin pen 50 unit subcut DAILY ergocalciferol (vitamin D2) [Vitamin D2] 1,250 mcg (50,000 unit) capsule 1,250 mcg PO QWEEK Qty: 12 0RF aripiprazole 10 mg tablet 5 mg PO BID Qty: 30 0RF lisdexamfetamine 50 mg capsule 50 mg PO QAM Qty: 30 0RF Rx Instructions: Partial Fill upon patient request. gabapentin 600 mg tablet 600 - 1,200 mg PO BEDTIME Qty: 60 0RF escitalopram oxalate 10 mg tablet 10 mg PO DAILY Qty: 45 0RF guanfacine 2 mg tablet extended release 24 hr 2 mg PO QAM Qty: 30 0RF guanfacine 1 mg tablet extended release 24 hr 1 mg PO QPM Qty: 30 0RF buspirone 15 mg tablet See Rx Instructions .ROUTE .COMPLEX Qty: 120 0RF Rx Instructions: take 2 tablets po QAM, take one tablet po daily in afternoon, take 1 tablet po QHS thiamine HCl (vitamin B1) 100 mg tablet 100 mg PO DAILY Qty: 30 2RF Stand Alone Forms: Work/School Release Print Language: Kyrgyz
[2025-09-12 12:21] VITALS: BP 179/94; PULSE 80; RESP 20; TEMP 36.1; O2SAT 96
--- OUTSIDE RECORDS SUMMARY | 2025-09-12 13:55 | XMS_ITS | Encounter Summary ---
Author Organization [facility] Address [address] [place] [address] Phone Care Team Providers Care Front End Technician Name Role Phone Jesse Bo MD Primary Care Provider [phone] Encounter Details Date Type Department Care Team (Late st Contact Info) Description 11/03/2024 Procedure [facility], Ct Scan - [address] [address] Social History Tobacco Use Types Packs/Day Years Used Date Smoking Tobacco: Never Smokeless Tobacco: Never Alcohol Use Standard Drinks/Week Comments Not Currently 0 (1 standard drink = 0.6 oz pur e alcohol) Education Answer Date Recorded Are you interested in more education? Not on tierney e 08/02/2024 Are you concerned about learning? Not on file 08/02/2024 No 08/02/2024 No 08/02/2024 Digital Access Answer Date Recorded No 08/02/2024 No 08/02/2024 Reliable internet access at home? Not on file 08/02/2024 Device with a working camera? Not on file Intimate Partner Violence Answer Date R ecorded Are you denied basic needs s uch as food, clothing, or medical care? No 11/03/2024 In the past 12 months have y ou been in a relationship with a person who hurts, threatens, or tries to control you? No 11/03/2024 Are you denied basic needs s uch as food, clothing, or medical care? No 11/03/2024 In the past 12 months have y ou been in a relationship with a person who hurts, threatens, or tries to control you? No 11/03/2024 Sex and Gender Information Value Date Recorded Sex Assigned at Male 10/28/2024 9:55 PM EST Legal Sex Male 9:24 PM EDT Gender Identity Male 10/28/2024 9:55 PM EST Sexual Orientation Straight 10/28/2024 9: 55 PM EST documented as of this encounter Functional Status * Calculated C-SSRS Risk Score (Lifetime/Recent) Answer Date of Assessment Author No Risk Indicated 11/03/2024 3:19 PM Dodie Salmeron RN * [place] Suicide Severity Rating Scale (Screener/Recent Self-Report) Question Answer Date of Assessment Author 1. Wish to be (Past 1 Month) No 025 3:19 PM Dodie Salmeron RN 2. Non-Specific Active Suici kacy Thoughts (Past 1 Month) No 11/03/2024 3:19 PM Dodie Salmeron RN 6. Suicidal Behavior (Lifetime) No 3:19 PM Dodie Salmeron RN documented as of this encounter Plan of Treatment Not on file documented as of this encounter Visit Diagnoses Not on filedocumented in this encounter Care Teams Front End Technician Relationship Specialty Start Date End Date Jesse Bo MD [address] [place] [phone] [email or web address] PCP - General Family Medicine 10/28/24 documented as of this encounter Additional Source Comments The information contained in this document represents components of the legal health record. It is not the complete legal health record.[facility]
--- OUTSIDE RECORDS SUMMARY | 2025-09-12 13:55 | XMS_ITS | Clinical Summary ---
Author Organization [facility] Address [address] [place] [address] Phone Care Team Providers Care Knifeman Name Role Phone Lotus Fields MD Primary Care Provider Allergies Active Allergy Reactions Criticality Noted Date Comments Semaglutide 10/28/2024 Dulaglutide 10/28/2024 Medications CITALOPRAM HYDROBROMIDE (CITALOPRAM ORAL) Active ALBUTEROL SULFATE (PROAIR HFA INHL) Active LAMOTRIGINE ORAL Act judy ibuprofen (MOTRIN) 600 mg tablet (To-Go) Take 1 tablet by mouth every 6 hours as needed for pain. Active ibuprofen (ADVIL,MOTRIN) 800 MG tablet Take 1 tablet (800 mg total) by mouth every 6 (six) hours as needed for pain (specific location in comments). 25 tablet Active Additional Information Patient not taking.Reported on 06/02/2025 oxyCODONE 5 MG immediate release tablet Take 1 tablet (5 mg total) by mouth every 6 (six) hours as needed. Partial fill ok 8 tablet 4 Active Additional Information Patient not taking.Reported on 06/08/2025 acetaminophen (TYLENOL) 500 MG tablet Take 2 tablets (1,000 mg total) by mouth every 8 (eight) hours as needed for pain (specific location in comments) (low back). 20 tablet 5 Active Additional Information Patient not taking.Reported on 06/02/2025 ARIPiprazole (ABILIFY) 10 MG tablet Take 10 mg by mouth daily. Active ONETOUCH VERIO Strp strips USE DIRECTED 3 TIMES A DAY 5 Active DEXCOM G7 SENSOR Lakisha 5 Active buPROPion (WELLBUTRIN XL) 300 MG ER 24 hr tablet Take 1 tablet by mouth every morning. 5 Active busPIRone (BUSPAR) 15 MG tablet TAKE 2 TABLETS BY MOUTH IN THE MORNING , 1 TABLET IN THE AFTERNOON, AND 1 TABLET AT BEDTIME Active ergocalciferol (DRISDOL) 50,000 unit capsule Take 1 capsule by mouth once a week. 5 Active escitalopram oxalate (LEXAPRO) 20 MG tablet Take 10 mg by mouth daily. Active gabapentin (NEURONTIN) 600 MG tablet TAKE 1 TO 2 TABLETS BY MOUTH AT BEDTIME DIRECTED 5 Active guanFACINE (INTUNIV) 2 mg Tb24 ER tablet Take 2 mg by mouth every morning. 5 Active guanFACINE (INTUNIV) 1 mg Tb24 take 1 tablet by mouth everyday at bedtime 5 Active LANTUS SOLOSTAR U-100 INSULIN 100 unit/mL (3 mL) InPn injection pen Inject 54 Units under the skin daily. 5 Active HUMALOG KWIKPEN INSULIN 100 unit/mL kwikpen Inject 12 Units under the skin 3 (three) times a day with meals. 5 Active lisdexamfetamine (VYVANSE) 50 MG capsule Take 50 mg by mouth every morning. 5 Active metFORMIN (GLUCOPHAGE-XR) 500 MG 24 hr tablet Take 4 tablets by mouth every morning. 5 Active pioglitazone (ACTOS) 30 MG tablet Take 30 mg by mouth daily. Active ULTRA-FINE PEN NEEDLE 31 gauge x /16 Ndle USE ONE NEEDLE EVERY DAY TO INJECT LANTUS AND 2 FOR NOVOLOG(TWICE DAILY)- 3 TOTAL PER DAY 5 Active thiamine (VITAMIN B-1) 100 MG tablet Take 1 tablet by mouth every morning. 5 Active cholecalciferol (VITAMIN D3) 25 MCG (1,000 unit) tablet Take 1,000 Units by mouth daily. Active vitamin E 400 UNIT capsule Take 400 Units by mouth daily. Active magnesium aspart,citrate,o xide (TRIPLE MAGNESIUM COMPLEX) 400 mg magnesium Cap Take by mouth. A ctive Social History Tobacco Use Types Packs/Day Years Used Date Smoking Tobacco: Never Smokeless Tobacco: Never Tobacco Cessation:Counseling Given: Not Answered Alcohol Use Standard Drinks/Week Comments Not Currently [...] as food, clothing, or medical care? No 06/08/2025 In the past 12 months have y ou been in a relationship with a person who hurts, threatens, or tries to control you? No 06/08/2025 Are you denied basic needs s uch as food, clothing, or medical care? No 06/08/2025 In the past 12 months have y ou been in a relationship with a person who hurts, threatens, or tries to control you? No 06/08/2025 Sex and Gender Information Value Date Recorded Sex Assigned at Male 10/28/2024 9:55 PM EST Legal Sex Male 9:24 PM EDT Gender Identity Male 10/28/2024 9:55 PM EST Sexual Orientation Straight 10/28/2024 9: 55 PM EST Last Filed Vital Signs Vital Sign Reading Time Taken Comments Blood Pressure 128/79 06/08/2025 10:40 AM EDT Pulse 77 06/08/2025 10:40 AM EDT Temperature 36.1 C (97 F) 06/08/2025 10:33 AM EDT Respiratory Rate 18 06/08/2025 10:40 AM EDT Oxygen Saturation 98% 06/08/2025 10:40 AM EDT Inhaled Oxygen Concentration - - Weight 141.5 kg (312 lb) 06/02/2025 12:54 PM EDT Height 185.4 cm (6' 1 ) 06/02/2025 12:54 PM EDT Body Mass Index 41.16 06/02/2025 12:54 PM EDT Plan of Treatment Health Maintenance Due Date Last Done Comments CREATININE LEVEL 1978 LIPID PANEL 1978 DEPRESSION SCREENING 1990 HEPATITIS C SCREENING 1996 HIV ONE-TIME SCREENING (18-65 YEARS) 1996 SCREENING FOR DIABETES 2013 COLOGUARD 2023 FIT TEST 2023 FOBT 2023 SIGMOIDOSCOPY 2023 VIRTUAL COLONOSCOPY 2023 INFLUENZA VACCINE (#1) 2025 , 10/13/2023, 11/24/2022, Additional history exists COVID-19 VACCINE ( - 2024- season) 2025 02/04/2021 Adult Td,Tdap Booster 02/16/2029 02/16/2019 , 02/22/2009, 03/24/2007 COLONOSCOPY 06/08/2035 06/08/2025 COLORECTAL CANCER SCREENING 06/08/2035 PNEUMOCOCCAL VACCINES (0-49 years) Aged Out 06/27/2016 No longer eligible based on patient's age to complete this topic SMOKING STATUS SCREENING (Once After 26 Yrs) Completed 06/08/2025 HEPATITIS A VACCINES Aged Out No long er eligible based on patient's age to complete this topic HIB VACCINES Aged Out No longer eligi ble based on patient's age to complete this topic MENINGOCOCCAL VACCINES (ACWY) Aged Out No longer eligible based on patient's age to complete this topic MENINGOCOCCAL VACCINES (B) Aged Out N o longer eligible based on patient's age to complete this topic Medical Devices Not on file Procedures Procedure Name Priority Date/Time Associated Diagnosis Comments ENDOSCOPY, COLON 06/08/2025 9:57 AM EDT from Last 3 Months or Most Recently Relevant to Health Maintenance Results * ENDOSCOPY, COLON (06/08/2025 9:57 AM EDT) Narrative Transcriptions Sidney Ramirez MD - 06/08/2025 9:57 AM EDT [facility] Patient Name: Kade Lyon Attending MD:: SIDNEY RAMIREZ MD, , Procedure Date: 06/08/2025 9:57 AM Date of : 1980 Age: 44 Admit Type: Outpatient Gender: Male Room: [place] [address] Referring MD: LOTUS FIELDS MD Exam Type: Colonoscopy Indications: Screening for colorectal malignant neoplasm Medications: Monitored Anesthesia Care Procedure: Informed consent was obtained from the patientafter discussion of the indications, limitations, alternatives, benefits, and risks of the procedure. Risks specifically discussed include but are not limited to medication reactions, missed lesions, bleeding, perforation, or the need for emergent surgery. Throughout the procedure, the patient's blood pressure, pulse, end-tidal CO2, and oxygensaturations were monitored continuously. The Olympus adult variable colonoscope [id number] #5 was introduced through the anus and advanced to the cecum, identified by appendiceal orifice andileocecal valve. The colonoscopy was performed without difficulty. The patient tolerated the procedurewell. The quality of the bowel preparation was excellent. The quality of the bowel preparation was evaluated using the BBPS ([place] Bowel Preparation Scale)with scores of: Right Colon = 3, Transverse Colon = 3and Left Colon = 3 (entire mucosa seen well with no residual staining, small fragments of stool oropaque liquid). The total BBPS score equals 9. Anatomical landmarks were photographed. Complications: No immediate complications. Estimated blood loss: Minimal. Findings: The perianal and digital rectal examinations were normal. Two sessile polyps were found in the cecum. Thepolyps were 3 to 4 mm in size. These polyps were removedwith a cold snare. Resection and retrieval werecomplete. Scattered small-mouthed diverticula were found inthe sigmoid colon. Internal hemorrhoids were found duringretroflexion. The hemorrhoids were mild. The exam was otherwise normal throughout theexamined colon. Impression: - Two 3 to 4 mm polyps in the cecum, removed with a cold snare. Resected and retrieved. - Mild diverticulosis in the sigmoid colon. - Internal hemorrhoids. Recommendation: - Discharge patient to home. - Await pathology results. SIDNEY RAMIREZ MD, 06/08/2025 10:20:35 AM This report has been signed electronically. Number of Addenda: 0 Note Initiated On: 06/08/2025 9:57 AM Procedure Code(s): --- Professional --- 14502, Colonoscopy, flexible; with removal of tumor(s), polyp(s), or other lesion(s) by snare technique --- Technical --- 88934, Colonoscopy, flexible; with removal of tumor(s), polyp(s), or other lesion(s) by snare technique Diagnosis Code(s): --- Professional --- Z12.11, Encounter for screening for malignantneoplasm of colon D12.0, Benign neoplasm of cecum K64.8, Other hemorrhoids K57.30, Diverticulosis of large intestine without perforation or abscess without bleeding --- Technical --- Z12.11, Encounter for screening for malignantneoplasm of colon D12.0, Benign neoplasm of cecum K64.8, Other hemorrhoids K57.30, Diverticulosis of large intestine without perforation or abscess without bleeding CPT copyright 2021 [employer]. All rights reserved. The codes documented in this report are preliminary and upon mechanical design technician reviewmay be revised to meet current compliance requirements. Procedure Date: 06/08/2025 9:57:47 AM [address] [place] [address] Lotus Fields MD GI PROCEDURE ORDERABLES Fin al Result from Last 3 Months or Most Recently Relevant to Health Maintenance Insurance BLUE CROSS OUT OF STATE PPO BLUE CROSS OUT OF STATE PPO BLUE CROSS OUT OF STATE PPO BLUE CROSS OUT OF STATE PPO BLUE CROSS OUT OF STATE PPO BETTS [address] [address] BLUE CROSS OUT OF STATE PPO Care Teams Knifeman Relationship Specialty Start Date End Date Louts Fields MD [address] [place] [phone] [email or web address] PCP - General Family Medicine 10/28/24 Additional Source Comments The information contained in this document represents components of the legal health record. It is not the complete legal health record.[facility]
--- OUTSIDE RECORDS SUMMARY | 2025-09-12 13:55 | XMS_ITS | Encounter Summary ---
Author Organization [facility] Address [address] [place] [address] Phone Care Team Providers Care Turntable Engineer Name Role Phone Jesse Bo MD Primary Care Provider [phone] Encounter Details Date Type Department Care Team (Late st Contact Info) Description 06/08/2025 Procedure Pass [facility] Endoscopy Admitting Dept Virtual Department [address] [place] [address] Social History Tobacco Use Types Packs/Day Years [...] PM EST documented as of this encounter Plan of Treatment Not on file documented as of this encounter Visit Diagnoses Not on filedocumented in this encounter Care Teams Turntable Engineer Relationship Specialty Start Date End Date Jesse Bo MD [address] [place] [phone] [email or web address] PCP - General Family Medicine 10/28/24 documented as of this encounter Additional Source Comments The information contained in this document represents components of the legal health record. It is not the complete legal health record.[facility]
--- OUTSIDE RECORDS SUMMARY | 2025-09-12 13:55 | XMS_ITS | Clinical Summary ---
Author Organization [facility] Address [address] [place] [address] Phone Care Team Providers Care Law Office Assistant Name Role Phone Jesse Bo MD Primary Care Provider [phone] Allergies Active Allergy Reactions Criticality Noted Date Comments Semaglutide 04/02/2025 Dulaglutide 04/02/2025 Medications No known medications Active Problems No known active problems Medical History Medical History Date Comments Diabetes mellitus ([facility], [facility] V28) Adhd Anxiety Depression Social History Tobacco Use Types Packs/Day Years Used Date Smoking Tobacco: Never Assessed Sex and Gender Information Value Date Recorded Sex Assigned at Not on file Legal Sex Male 2:09 PM EDT Gender Identity Not on file Sexual Orientation Not on file Obstetrics History Last Filed Vital Signs Vital Sign Reading Time Taken Comments Blood Pressure 142/93 04/09/2025 7:57 PM EDT Pulse 77 04/09/2025 7:57 PM EDT Temperature 36.4 C (97.5 F) 04/09/2025 7:57 PM EDT Respiratory Rate 18 04/09/2025 7:57 PM EDT Oxygen Saturation 99% 04/09/2025 7:57 PM EDT Inhaled Oxygen Concentration - - Weight 136 kg (300 lb) 04/09/2025 1:39 PM EDT Height 185.4 cm (6' 1 ) 04/09/2025 1:39 PM EDT Body Mass Index 39.58 04/09/2025 1:39 PM EDT Plan of Treatment Health Maintenance Due Date Last Done Comments Colorectal Cancer Screening: Colonoscopy 1980 Hepatitis B Vaccines (1 of 3 - 19+ 3-dose series) 1997 Pneumococcal Vaccine: Pediatrics (0 to 5 Years) and At-Risk Patients (6 to 49 Years) (2 of 2 - PCV) 06/27/2017 06/27/2016 Depression Screening 11/02/2024 Cholesterol Screening (Lipid Panel) 04/02/2025 HIV Screening 04/02/2025 Hepatitis C Screening 04/02/2025 Social Influencers of Health Screening 04/02/2025 COVID-19 Vaccine (2 - season) 2025 02/04/2021 Influenza Vaccine (#1) 2025 , 10/13/2023, 11/24/2022, Additional history exists DTaP,Tdap,and Td Vaccines (4 - Td or Tdap) 02/16/2029 02/16/2019, 02/22/2009, 03/24/2007 RSV Immunization Adult Patients (1 - 1-dose 75+ series) 2053 HIB Vaccines Aged Out No longer eligi ble based on patient's age to complete this topic HPV Vaccines Aged Out No longer eligi ble based on patient's age to complete this topic Hepatitis A Vaccines Aged Out No long er eligible based on patient's age to complete this topic IPV Vaccines Aged Out No longer eligi ble based on patient's age to complete this topic MMR Vaccines Aged Out No longer eligi ble based on patient's age to complete this topic Meningococcal ACWY Vaccine Aged Out N o longer eligible based on patient's age to complete this topic Meningococcal B Vaccine Aged Out No l onger eligible based on patient's age to complete this topic RSV Immunization Patients Under 20 months Aged Out No longer eligible based on patient's age to complete this topic Varicella Vaccines Aged Out No longer eligible based on patient's age to complete this topic Insurance [facility] ([facility]) Care Teams Law Office Assistant Relationship Specialty Start Date End Date Jesse Bo MD [address] [place] [phone] PCP - General Family Medicine 04/02/25
--- OUTSIDE RECORDS SUMMARY | 2025-09-12 13:55 | XMS_ITS | Encounter Summary ---
Author Organization [facility] Address [address] [place] [address] Phone Care Team Providers Care Headline Writer Name Role Phone Jesse Bo MD Primary Care Provider [phone] Jesse Bo MD Primary Care Provider [phone] Encounter Details Date Type Department Care Team (Late st Contact Info) Description 09/26/2024 Procedure Pass [facility] Endoscopy Admitting Dept Virtual Department [address] [place] [address] Social History Tobacco Use Types Packs/Day Years Used Date Smoking Tobacco: Never Assessed Education Answer Date Recorded Are you interested in more education? Not on tierney e 08/02/2024 Are you concerned about learning? Not on file 08/02/2024 No 08/02/2024 No 08/02/2024 Digital Access Answer Date Recorded No 08/02/2024 No 08/02/2024 Reliable internet access at home? Not on file 08/02/2024 Device with a working camera? Not on file Sex and Gender Information Value Date Recorded Sex Assigned at Male 10/28/2024 9:55 PM EST Legal Sex Male 9:24 PM EDT Gender Identity Male 10/28/2024 9:55 PM EST Sexual Orientation Straight 10/28/2024 9: 55 PM EST documented as of this encounter Plan of Treatment Not on file documented as of this encounter Visit Diagnoses Not on filedocumented in this encounter Care Teams Headline Writer Relationship Specialty Start Date End Date Jesse Bo MD [email or web address] PCP - General 11/05/17 10/27/24 Jesse Bo MD [address] [place] [phone] [email or web address] PCP - General Family Medicine 10/28/24 documented as of this encounter Additional Source Comments The information contained in this document represents components of the legal health record. It is not the complete legal health record.[facility]
== END 2025-09-12 12:22 | disposition home or self-care (01) ==
PROVIDERS: Emergency Provider Emergency Medicine; PCP Family Medicine
DX: M54.16 Radiculopathy, lumbar region (principal); J45.909 Unspecified asthma, uncomplicated; E11.9 Type 2 diabetes mellitus without complications; I10 Essential (primary) hypertension
CPT/HCPCS: 73502; 96372; 99283; J1885

== ENCOUNTER → 2025-09-12 10:30 | Outpatient (BNV) | payer BC, SELFPAY | PROVIDERS: Emergency Provider Emergency Medicine; Visit Provider Radiology Diagnostic Radiology | DX: M16.0 Bilateral primary osteoarthritis of hip (principal) | CPT/HCPCS: 73502 ==

== ENCOUNTER 2025-09-18 05:30 | Emergency (ER) | payer OTHER, SELFPAY ==
--- NOTE | ~2025-09-18 | XR_ITS ---
CLINICAL HISTORY: low back pain 4 views lumbar spine Comparison: None provided Findings: Normal alignment. No acute fractures or dislocation. Mild degenerative change at L4-L5 and L5-S1. Impression: Mild degenerative changes at L4-L5 and L5-S1. This document has been electronically signed by: Caleb Mendoza MD on 09/18/2025 08:27:45
[2025-09-18 05:34] VITALS: BP 139/89; PULSE 93; RESP 16; TEMP 36.4; O2SAT 97; BMI 42.5
--- OUTSIDE RECORDS SUMMARY | 2025-09-18 05:58 | XMS_ITS | Clinical Summary ---
Author Organization [facility] Address [address] [place] [address] Phone Care Team Providers Care Psychiatric Lpn Name Role Phone Lotus Fields MD Primary Care Provider [phone] Allergies Active Allergy Reactions Criticality Noted Date [...] patient's age to complete this topic IPV VACCINES Aged Out No longer eligi ble [...] Ramirez MD - 06/08/2025 9:57 AM EDT [facility] Patient Name: Kade Lyon Attending MD:: SIDNEY RAMIREZ MD, , Procedure Date: 06/08/2025 9:57 AM Date of : 1980 Age: 44 Admit Type: Outpatient Gender: Male Room: [place] [address] Referring MD: LOTUS FIELDS MD Exam Type: [...] monitored continuously. The Olympus adult variable colonoscope [id number] #5 was introduced through the anus and advanced to the cecum, identified by appendiceal orifice andileocecal valve. The colonoscopy was performed without difficulty. The patient tolerated the procedurewell. The quality of the bowel preparation was excellent. The quality of the bowel preparation was evaluated using the BBPS ([place] Bowel Preparation Scale)with scores of: Right Colon [...] 9:57 AM Procedure Code(s): --- Professional --- 11386, Colonoscopy, flexible; with removal of tumor(s), polyp(s), or other lesion(s) by snare technique --- Technical --- 25822, Colonoscopy, flexible; with removal of tumor(s), polyp(s), [...] or abscess without bleeding CPT copyright 2021 [employer]. All rights reserved. The codes documented in this report are preliminary and upon head of research & insights reviewmay be revised to meet current compliance requirements. Procedure Date: 06/08/2025 9:57:[address] [place] [phone] Lotsu Fields MD GI PROCEDURE ORDERABLES Fin al Result from Last 3 Months or Most Recently Relevant to Health Maintenance Insurance BLUE CROSS OUT OF STATE PPO BLUE CROSS OUT OF STATE PPO BLUE CROSS OUT OF STATE PPO BLUE CROSS OUT OF STATE PPO BLUE CROSS OUT OF STATE PPO BLUE CROSS OUT OF STATE PPO [address] [place] [address] Care Teams Psychiatric Lpn Relationship Specialty Start Date End Date Lotus Fields MD [address] [place] [phone] [email or web address] PCP - General Family Medicine 10/28/24 Additional Source Comments The information contained in this document represents components of the legal health record. It is not the complete legal health record.[facility]
--- OUTSIDE RECORDS SUMMARY | 2025-09-18 05:58 | XMS_ITS | Encounter Summary ---
Author Organization [facility] Address [address] [place] [address] Phone Care Team Providers Care Senior Biostatistician/Group Leader Name Role Phone Jesse Bo MD Primary Care Provider [phone] Jesse Bo MD Primary Care Provider [phone] Encounter Details Date Type Department Care Team (Late st Contact Info) Description 09/26/2024 Procedure Pass [facility] Endoscopy Admitting Dept Virtual Department [address] [place] [address] Social History Tobacco Use Types Packs/Day Years [...] on filedocumented in this encounter Care Teams Senior Biostatistician/Group Leader Relationship Specialty Start Date End Date Jesse Bo MD [email or web address] PCP - General 11/05/17 10/27/24 Jesse Bo MD [address] [place] [phone] [email or web address] PCP - General Family Medicine 10/28/24 documented as of this encounter Additional Source Comments The information contained in this document represents components of the legal health record. It is not the complete legal health record.[facility]
--- OUTSIDE RECORDS SUMMARY | 2025-09-18 05:58 | XMS_ITS | Clinical Summary ---
Author Organization [facility] Address [address] [place] [address] Phone Care Team Providers Care Director Retail Brand Development Name Role Phone Jesse Bo MD Primary Care Provider [phone] Allergies Active Allergy Reactions Criticality Noted Date Comments Semaglutide 04/02/2025 Dulaglutide 04/02/2025 Medications No known medications Active Problems No known active problems Medical History Medical History Date Comments Diabetes mellitus ([facility] V24, [facility] V28) Adhd Anxiety Depression Social History Tobacco [...] patient's age to complete this topic Insurance [facility] ([facility]) Care Teams Director Retail Brand Development Relationship Specialty Start Date End Date Jesse Bo MD [address] [place] [phone] PCP - General Family Medicine 04/02/25
--- OUTSIDE RECORDS SUMMARY | 2025-09-18 05:58 | XMS_ITS | Encounter Summary ---
Author Organization [facility] Address [address] [place] [address] Phone Care Team Providers Care Green Lumber Grader Name Role Phone Jesse Bo MD Primary Care Provider [phone] Encounter Details Date Type Department Care Team (Late st Contact Info) Description 11/03/2024 Procedure Pass [facility], Ct Scan - [address] [address] Social History Tobacco Use Types Packs/Day Years [...] 11/03/2024 3:19 PM Dodie Salmeron RN * [place] Suicide Severity Rating Scale (Screener/Recent Self-Report) Question [...] on filedocumented in this encounter Care Teams Green Lumber Grader Relationship Specialty Start Date End Date Jesse Bo MD [address] [place] [phone] [email or web address] PCP - General Family Medicine 10/28/24 documented as of this encounter Additional Source Comments The information contained in this document represents components of the legal health record. It is not the complete legal health record.[facility]
--- OUTSIDE RECORDS SUMMARY | 2025-09-18 05:58 | XMS_ITS | Encounter Summary ---
Author Organization [facility] Address [address] [place] [address] Phone Care Team Providers Care News Anchor Name Role Phone Jesse Bo MD Primary Care Provider [phone] Encounter Details Date Type Department Care Team (Late st Contact Info) Description 06/08/2025 Procedure Pass [facility] Endoscopy Admitting Dept Virtual Department [address] [place] [address] Social History Tobacco Use Types Packs/Day Years [...] on filedocumented in this encounter Care Teams News Anchor Relationship Specialty Start Date End Date Jesse Bo MD [address] [place] [phone] [email or web address] PCP - General Family Medicine 10/28/24 documented as of this encounter Additional Source Comments The information contained in this document represents components of the legal health record. It is not the complete legal health record.[facility]
--- NOTE | 2025-09-18 06:37 | ED_ITS ---
HPI - General Adult General Chief complaint: Extremity Problem Stated complaint: back/hip pain Time Seen by Provider: 09/18/25 06:15 Source: patient Mode of arrival: ambulatory Limitations: no limitations History of Present Illness ED Provider: HPI narrative: 44-year-old male no history IV drug use, presenting with right lower back pain, was seen here on September 12 discharged with anti-inflammatories steroids, states continues to have discomfort, no lower extremity weakness no numbness in the groin no fevers or chills no sensory motor deficits bilateral lower extremities, no trauma reported, no hematuria dysuria reported. Related Data Home Medications ?Medication ?Instructions ?Recorded ?Confirmed pioglitazone 30 mg tablet 30 mg PO DAILY 10/10/2304/03 aripiprazole 5 mg tablet (Abilify) 5 mg PO DAILY 04/2504/25/25 bupropion HCl 300 mg 24 hr tablet, 300 mg PO DAILY 04/25/25 extended release insulin glargine 100 unit/mL (3 50 unit subcut DAILY 0 04/25/25 04/25/25 mL) subcutaneous pen (Lantus Solostar U-100 Insulin) metformin 500 mg tablet 2,000 mg PO DAILY 04/25/25 0 04/25/25 Previous Rx's ?Medication ?Instructions ?Recorded ergocalciferol (vitamin D2) 1,250 1,250 mcg PO QWEEK # 12 caps 04/27/25 mcg (50,000 unit) capsule (Vitamin D2) aripiprazole 10 mg tablet 5 mg (1/2 x 10 mg) PO BID #3 0 tabs 04/28/25 buspirone 15 mg tablet See Rx Instructions .Route 0 05/11/25 .COMPLEX #120 tabs escitalopram oxalate 10 mg tablet 10 mg PO DAILY #45 t abs 05/11/25 gabapentin 600 mg tablet 600 - 1,200 mg (1 - 2 x 600 mg) PO 05/11/25 BEDTIME as directed #60 tabs guanfacine 1 mg tablet,extended 1 mg PO QPM #30 tabs 0 05/11/25 release 24 hr guanfacine 2 mg tablet,extended 2 mg PO QAM #30 tabs 0 05/11/25 release 24 hr lisdexamfetamine 50 mg capsule 50 mg PO QAM #30 caps 0 05/11/25 thiamine HCl (vitamin B1) 100 mg 100 mg PO DAILY #30 t abs 05/11/25 tablet lidocaine 5 % topical patch 1 patch topical DAILY #15 ea 09/12/25 naproxen 500 mg tablet 500 mg PO BID #14 tabs 09/12 prednisone 10 mg tablet See Rx Instructions .Route 1 11/12/24 .COMPLEX #15 tabs diazepam 5 mg tablet (Valium) 5 mg PO Q6H PRN muscle s pasm 5 09/18/25 days #20 tabs Allergies Allergy/AdvReac Type Severity Reaction Status Date / Time dulaglutide (From Trulicity) Allergy Abdominal Verified 09/18/25 05:37 Pain semaglutide (From Ozempic) Allergy Gastrointestinal Verified 09/18/25 05:37 Upset Review of Systems Constitutional: Constitutional: Reports as per [facility] Past Medical History Medical History (Updated 09/18/25 @ 07:17 by Danial Price DO) Sleep apnea Asthma Anxiety and depression Type 2 diabetes mellitus Morbid obesity with BMI of 40.0-44.9, adult Depression Anxiety HTN (hypertension) Surgical History (Updated 10/10/23 @ 02:42 by David Ramos MD) H/O adenoidectomy Social History Social History Household Members: Other Household Members Other:: Cat Alcohol intake: current Alcohol intake frequency: holidays/special occasions only Patient Tobacco Use Status: Never used Tobacco Smoked in Last 30 Days: No Use of substances other than those prescribed or required for medical reasons: Yes Substance Use Type: Marijuana Substance Use Frequency: Occasionally Advance Directives: No Advance Directives Information Provided: No service: No Physical Exam ED Exam Exam: General: looks age appropriate, heavy-set, Resp: ?No wheezing rales rhonchi no stridor moving air well Abd: ?Bowel sounds are present, no tenderness no rebound no rigidity MSK: FROM, strength 5/5 all extremities , no sensory motor deficits bilateral lower extremities, right paraspinal tenderness L3 2 L 5/S1 Skin: Warm, dry, intact, no rashes Neuro: ?Alert and oriented x3, moving upper and lower extremities symmetrically, no obvious facial asymmetry noted, cranial nerves 2-12 intact Vital Signs: Vital Signs - 24 hr 09/18/25 05:34 09/18/25 07:01 Temperature 97.6 F 97.6 F Pulse Rate 93 86 Respiratory Rate 16 16 Blood Pressure 139/89 124/76 Pulse Oximetry 97 97 Oxygen Delivery Method Room Air Room Air BMI result Body Mass Index 42.5 Medications Administered Discontinued Medications Generic Name Dose Route Start Last Admin Trade Name Freq PRN Reason Stop Dose Admin Ketorolac Tromethamine 30 mg 09/18/25 06:38 09/18/25 06:57 Ketorolac Tromethamine 30 Mg/Ml Vial IM 09/18/25 06:39 30 mg ONCE ONE Administration Lidocaine HCl 10 ml 09/18/25 06:38 09/18/25 06:50 Lidocaine Hcl 1 % 20 Ml Vial INFILTRATI 09/18/25 06:39 Not Given ONCE ONE Lidocaine HCl 10 ml 09/18/25 06:50 09/18/25 06:58 Lidocaine Hcl 1 % 20 Ml Vial INFILTRATI 09/18/25 06:51 Not Given ONCE ONE Lidocaine HCl 10 ml 09/18/25 07:00 09/18/25 07:00 Lidocaine Hcl 1 % Mpf 5 Ml Vial INFILTRATI 09/18/25 07:01 10 ml ONCE ONE Administration Procedures Procedure Narrative Procedure Narrative: CPT 98152: 1 or 2 muscle groups injected single or multiple trigger points Time-out: A time-out was performed to confirm the correct patient, procedure, site, and consent. Technique: The patient was placed in a [sitting] position. The skin overlying the trigger points was cleansed with [alcohol prep pad]. The trigger points were palpated and marked. Stabilization and Injection: The provider stabilized the muscle tissue by pinching the trigger point between their fingers. Using [21-gauge, 1.5-inch needle], the medication was injected with a fanning motion into the affected muscles. Medication: A solution of [ 10 mL of 1% lidocaine ] was injected. Muscles Injected: A total of [ #1 ] muscles were injected on the [right] side, including the: paraspinal muscles on the right I will 3 to L5 Post-Procedure: Patient Response: The patient tolerated the procedure well and reported improvement in their pain. Follow-up: The injection sites were cleaned, and a bandage was applied. The patient was instructed to [apply ice for 15 minutes as needed] and advised on potential post-injection soreness. Assessment and Plan: The injection was successful, resulting in decreased pain and improved range of motion. Follow-up will be scheduled as needed. Medical Decision Making Medical Decision Making [facility] Narrative: 7:00 AM 09/18/2025 (Dr. Danial Price): No risk factors for infectious considerations as below such as diskitis osteomyelitis no neurologic deficits to suspect spinal epidural abscess or cauda equina, palpable muscle spasms, verbal consent was obtained for trigger point injections, these were performed, see my discharge instructions, no indication for urine, blood work or CAT scan at this time I we will obtain x-rays however he did have x-rays on the of this month for pelvis and hip Differential Diagnosis Differential Diagnoses: The differential diagnosis associated with the presentation includes ( Diskitis, osteomyelitis, spinal epidural abscess, cauda equina, musculoskeletal pain) Admission/Observation Consideration of admission/observation: Escalation of care including admission/observation considered Independent Interpretation I performed an independent interpretation of an: Plain X-Ray ( no obvious destructive lesions or compressive fractures) Radiology Impression Discussion of test interpretation with radiology: I have reviewed the radiologist's reading. Prescription Management I considered prescription management with: Pain Medication Discharge Plan Discharge Clinical Impression: Spasm of muscle of lower back Instructions: Muscle Spasm (ED) Additional Instructions: you can continue using lidocaine patches I actually prefer capsaicin patches or ointment has been mindful does not get around your groin area if you are using cream, a gets really hot and then just works better for spasm, [place] PCP may need physical therapy, continue with Tylenol 975 mg every 6 hours around the clock, ibuprofen 400 mg every 6 hours, and Valium every 6-8 hours 5 mg for spasm, otherwise we also discussed heat packs, ice packs to the area, gentle stretching, I reviewed your prior x-rays x-rays today without significant changes, your exam is consistent with muscle spasm, I am hoping that the injection you received today will improve your symptoms spiking fevers, inability to walk, numbness in the groin, loss of bowel or bladder function any other concerns come back to the ER Prescriptions: New diazepam [Valium] 5 mg tablet 5 mg PO Q6H PRN (Reason: muscle spasm) 5 Days Qty: 20 0RF No Action pioglitazone 30 mg tablet 30 mg PO DAILY aripiprazole [Abilify] 5 mg Tablet 5 mg PO DAILY metformin 500 mg Tablet 2,000 mg PO DAILY Rx Instructions: Take 4 tabs daily. bupropion HCl 300 mg tablet extended release 24 hr 300 mg PO DAILY Patient Comments: Patient stated he takes this medication daily. insulin glargine [Lantus Solostar U-100 Insulin] 100 unit/mL (3 mL) insulin pen 50 unit subcut DAILY ergocalciferol (vitamin D2) [Vitamin D2] 1,250 mcg (50,000 unit) capsule 1,250 mcg PO QWEEK Qty: 12 0RF aripiprazole 10 mg tablet 5 mg PO BID Qty: 30 0RF lisdexamfetamine 50 mg capsule 50 mg PO QAM Qty: 30 0RF Rx Instructions: Partial Fill upon patient request. gabapentin 600 mg tablet 600 - 1,200 mg PO BEDTIME Qty: 60 0RF escitalopram oxalate 10 mg tablet 10 mg PO DAILY Qty: 45 0RF guanfacine 2 mg tablet extended release 24 hr 2 mg PO QAM Qty: 30 0RF guanfacine 1 mg tablet extended release 24 hr 1 mg PO QPM Qty: 30 0RF buspirone 15 mg tablet See Rx Instructions .ROUTE .COMPLEX Qty: 120 0RF Rx Instructions: take 2 tablets po QAM, take one tablet po daily in afternoon, take 1 tablet po QHS thiamine HCl (vitamin B1) 100 mg tablet 100 mg PO DAILY Qty: 30 2RF prednisone 10 mg tablet See Rx Instructions .ROUTE .COMPLEX Qty: 15 0RF Rx Instructions: 50mg (5 tabs) x1 day, then 40 mg (4 tabs) x1 day, then 30 mg (3 tabs) x1 day, then 20 mg (2 tabs) times 1 day, then 10 mg (1 tab) x1 day naproxen 500 mg tablet 500 mg PO BID Qty: 14 0RF lidocaine 5 % adhesive patch,medicated 1 patch topical DAILY Qty: 15 0RF Rx Instructions: leave on most painful area for up to 12 hrs Print Language: Bangladeshi
[2025-09-18] MEDS: Lidocaine HCl 1 % MPF 5 ML VIAL 10 ML INFILTRATI (07:00)
[2025-09-18 07:01] VITALS: BP 124/76; PULSE 86; RESP 16; TEMP 36.4; O2SAT 97
[2025-09-18 08:39] VITALS: BP 128/78; PULSE 80; RESP 14; TEMP 36.7; O2SAT 96
== END 2025-09-18 08:40 | disposition home or self-care (01) ==
PROVIDERS: Emergency Provider Emergency Medicine; PCP Family Medicine
DX: M62.830 Muscle spasm of back (principal); M54.50 Low back pain, unspecified; E11.9 Type 2 diabetes mellitus without complications; I10 Essential (primary) hypertension; Z79.4 Long term (current) use of insulin; Z79.84 Long term (current) use of oral hypoglycemic drugs; Z79.899 Other long term (current) drug therapy; M51.369 Other intervertebral disc degeneration, lumbar region without mention of lumbar back pain or lower extremity pain
CPT/HCPCS: 20552; 72100; 96372; 99284; J1885; J2003

== ENCOUNTER → 2025-09-18 06:58 | Outpatient (BNV) | payer OTHER, SELFPAY | PROVIDERS: Emergency Provider Emergency Medicine; PCP Family Medicine; Visit Provider Radiology Vascular & Interventional Radiology | DX: M51.370 Other intervertebral disc degeneration, lumbosacral region with discogenic back pain only (principal) | CPT/HCPCS: 72100 ==